=== PATIENT | male | born 1960 | race Caucasian/White ===

== ENCOUNTER → 2018-02-24 15:01 | Outpatient (REF) | payer MEDICAID, SELFPAY ==
[2018-02-24 17:58] LABS: Basophils # 0.1 K/mm3 (0-0.2); Basophils % 0.7 % (0.1-2.0); Eosinophils # 0.1 K/mm3 (0.0-0.4); Eosinophils % 1.6 % (0.1-12.0); Hematocrit 50.4 % (42.0-52.0); Hemoglobin 15.9 g/dL (14.1-18.0); Lymphocytes % 30.8 K/mm3 (10-50); Mean Corpuscular HGB Conc 31.5 g/dL (31.8-35.4); Mean Corpuscular Hemoglobin 29.9 pg (27.0-31.2); Mean Corpuscular Volume 94.8 fl (80-94); Mean Platelet Volume 8.1 fl (7.4-10.4); Monocytes # 0.5 K/mm3 (0.1-1.0); Monocytes % 7.9 % (1.7-9.3); Neutrophils # 3.8 K/mm3 (1.8-7.8); Neutrophils % 58.9 % (37.0-80.0); Platelet Count 292 K/mm3 (142-424); Red Blood Count 5.32 M/mm3 (4.60-6.20); Red Cell Distribution Width 12.7 % (11.5-17.5); White Blood Count 6.4 K/mm3 (4.8-10.8)
[2018-02-24 18:12] LABS: Alanine Aminotransferase 23 U/L (12-78); Albumin/Globulin Ratio 1.2 (1.1-1.8); Alkaline Phosphatase 97 U/L (46-116); Anion Gap 10.1 mEq/L (5-15); Aspartate Amino Transferase 18 U/L (15-37); Bilirubin,Total 0.7 mg/dL (0.2-1.0); Blood Urea Nitrogen 15 mg/dL (7-18); Calcium 8.7 mg/dL (8.5-10.1); Carbon Dioxide 27 mmol/L (21.0-32.0); Chloride 103 mmol/L (98-107); Chol/HDL Ratio 5.8 (1-3.5); Cholesterol 245 mg/dL (140-200); Creatinine,Serum 0.78 mg/dL (0.70-1.30); Estimated Glomerular Filt Rate 103 ml/min (>60); Free T4 (Free Thyroxine) 1.15 ng/dl (0.76-1.46); GFR (African American) 124 ML/MIN (>60); Globulin 3.3 gm/dl (1.3-3.2); Glucose 99 mg/dL (74-106); HDL Cholesterol 42 mg/dL (27-67); LDL Cholesterol 184 mg/dL (0-130); Potassium 4.1 mmoL/L (3.5-5.1); Sodium 136 mmol/L (136-145); Thyroid Stimulating Hormone 1.44 uIU/ml (0.358-3.740); Total Protein,Serum 7.3 gm/dL (6.4-8.2); Triglycerides 97 mg/dL (30-200); VLDL Cholesterol 19 mg/dL (0-40)
[2018-02-24 18:41] LABS: Erythrocyte Sedimentation Rate 7 mm/hr (0-20)
[2018-02-26 12:25] LABS: Vitamin D 25 Hydroxy 29.7 ng/mL (30.0-100.0)
== END ==
LOC: LAB 15:01
PROVIDERS: Visit Provider Emergency Medicine
DX: R53.83 Other fatigue (principal); R42 Dizziness and giddiness
CPT/HCPCS: 80053; 80061; 82652; 84439; 84443; 85025; 85651

== ENCOUNTER → 2018-03-13 11:46 | Outpatient (CLI) | payer MEDICAID, SELFPAY | PROVIDERS: PCP Emergency Medicine; Visit Provider Internal Medicine Cardiovascular Disease | DX: R53.83 Other fatigue (principal) ==

== ENCOUNTER → 2018-03-20 12:01 | Outpatient (CLI) | payer MEDICAID, SELFPAY ==
--- NOTE | 2018-03-20 12:05 | CA_ITS ---
PROCEDURE: 2-D M-mode and color Doppler study INDICATIONS FOR THE TEST: Chest painX COPDX Heart Murmur Tobacco SmokingX Palpitations Fatigue Syncope Edema Hypertension Diabetes Mellitus Rheumatic Fever SOB ADAM Obesity Hyperlipidemia Family History HD Additional History ARRHYTHMIA PATIENT INFORMATION HEIGHT: 67 WEIGHT:140 GENDER: Male B/P:125/62 2-D/M-MODE INTERPRETATION: 2-D MEASUREMENTS OBSERVED VALUES IN CMS Right Ventricular Dimension (RVDd) 2.4 Interventricular Septum (Thickness)(IVsd) .7 Left Ventricular Internal Dimensions(LVIDd) 5.0 Left Ventricular Posterior Wall (Thickness)(LVPWd) .7 Aortic Root 2.6 Aortic Cusp Separation 1.8 Left Atrial Dimensions (LAD) 2.7 2D 1. Left atrium is normal size, left ventricle is normal size, there is no concentric left ventricular hypertrophy, visually estimated ejection 55% with no obvious regional wall motion abnormality. 2. The right atrium and right ventricle are normal size and contractility. 3. The aortic, mitral and tricuspid valvular grossly normal. 4.The pulmonic valve is poorly visualized. 5. There is no significant pericardial effusion noted. DOPPLER INTERROGATION: Doppler interrogation of the aortic, mitral and tricuspid valve is presence of mild mitral and tricuspid regurgitation, tricuspid and jet velocity insufficient for calculation of the right ventricular systolic pressure, diastolic parameters are within normal range. CONCLUSION: 1. Normal left ventricular size, preserved left ventricular systolic function, visually estimated ejection fraction 55% with no obvious regional wall motion abnormality, diastolic parameters are within normal range. 2. Mild mitral and tricuspid regurgitation 3. No significant pericardial effusion noted.
== END ==
PROVIDERS: PCP Emergency Medicine; Visit Provider Internal Medicine Cardiovascular Disease
DX: R07.9 Chest pain, unspecified (principal)
CPT/HCPCS: 93225; 93306

== ENCOUNTER → 2018-04-09 13:56 | Outpatient (POV) | payer MEDICAID, SELFPAY | PROVIDERS: PCP Emergency Medicine | DX: Z00.00 Encounter for general adult medical examination without abnormal findings (principal) ==

== ENCOUNTER → 2018-09-15 17:50 | Outpatient (CLI) | payer MEDICAID, SELFPAY ==
[2018-09-15 18:28] LABS: Basophils % 0.5 % (0.1-2.0); Eosinophils # 0.1 K/mm3 (0.0-0.4); Eosinophils % 1.6 % (0.1-12.0); Hematocrit 44.7 % (42.0-52.0); Hemoglobin 14.7 g/dL (14.1-18.0); Lymphocytes # 1.8 K/mm3 (0.7-4.5); Lymphocytes % 23.9 % (10-50); Mean Corpuscular Hemoglobin 31.4 pg (27.0-31.2); Mean Corpuscular Volume 95.1 fl (80-94); Mean Platelet Volume 8.5 fl (7.4-10.4); Monocytes # 0.5 K/mm3 (0.1-1.0); Monocytes % 7.2 % (1.7-9.3); Neutrophils % 66.8 % (37.0-80.0); Platelet Count 342 K/mm3 (142-424); Red Blood Count 4.69 M/mm3 (4.60-6.20); Red Cell Distribution Width 13.1 % (11.5-17.5); White Blood Count 7.5 K/mm3 (4.8-10.8)
[2018-09-15 19:09] LABS: Alanine Aminotransferase 30 U/L (12-78); Albumin Level 3.9 gm/dL (3.4-5.0); Albumin/Globulin Ratio 1.1 (1.1-1.8); Alkaline Phosphatase 112 U/L (46-116); Anion Gap 15.5 mEq/L (5-15); Aspartate Amino Transferase 19 U/L (15-37); Bilirubin,Total 0.3 mg/dL (0.2-1.0); Blood Urea Nitrogen 14 mg/dL (7-18); Calcium 9.4 mg/dL (8.5-10.1); Carbon Dioxide 27 mmol/L (21.0-32.0); Chloride 103 mmol/L (98-107); Chol/HDL Ratio 6.6 (1-3.5); Cholesterol 257 mg/dL (140-200); Creatinine,Serum 0.87 mg/dL (0.70-1.30); Estimated Glomerular Filt Rate 90 ml/min (>60); Free T4 (Free Thyroxine) 1.28 ng/dl (0.76-1.46); GFR (African American) 109 ML/MIN (>60); Globulin 3.5 gm/dl (1.3-3.2); Glucose 104 mg/dL (74-106); HDL Cholesterol 39 mg/dL (27-67); LDL Cholesterol 204 mg/dL (0-130); Potassium 4.5 mmoL/L (3.5-5.1); Sodium 141 mmol/L (136-145); Thyroid Stimulating Hormone 1.51 uIU/ml (0.358-3.740); Total Protein,Serum 7.4 gm/dL (6.4-8.2); Triglycerides 72 mg/dL (30-200); VLDL Cholesterol 14 mg/dL (0-40)
[2018-09-15 22:40] LABS: Erythrocyte Sedimentation Rate 26 mm/hr (0-20)
== END ==
LOC: LAB 17:51 → LAB.DROPOF 17:56
PROVIDERS: Visit Provider Emergency Medicine
DX: J44.9 Chronic obstructive pulmonary disease, unspecified (principal)
CPT/HCPCS: 80053; 80061; 84439; 84443; 85025; 85651

== ENCOUNTER → 2019-01-06 11:22 | Outpatient (CLI) | payer MEDICAID, SELFPAY ==
--- NOTE | 2019-01-06 11:28 | XR_ITS ---
EXAM: XR lumbar spine min 4V HISTORY: ITS.REASON: back pain ORDERING PHYSICIAN: Gopi Glass MD PATIENT AGE: 58 years COMPARISON: None FINDINGS: Mild degenerative disc disease L4-L5 with 5 mm anterolisthesis of L4 No fracture or dislocation. No lytic or blastic change. IMPRESSION: Degenerative disc disease L4-5 otherwise negative
--- NOTE | 2019-01-06 11:28 | XR_ITS ---
XR pelvis 1-2V HISTORY: Pain ITS.REASON: pain ORDERING PHYSICIAN: Gopi Glass MD PATIENT AGE: 58 years Comparison: None FINDINGS: No fracture or dislocation. There are bilateral os acetabuli. A well-circumscribed cystic area is present in the left femoral neck at 13 mm. IMPRESSION: 1. 13 mm cystic lesion left femoral neck. Recommend follow-up radiograph in 3 months to confirm stability. 2. Otherwise negative
[2019-01-06 16:23] LABS: Amphetamine/Metha Screen,Urine Negative ng/mL (<1000); Barbiturates Screen,Urine Negative ng/mL (<200); Benzodiazepines Screen,Urine Negative ng/mL (<200); Cannabinoid Screen,Urine Negative ng/mL (<50); Cocaine Screen,Urine Negative ng/mL (<300); Methadone Screen,Urine Negative ng/mL (<300); Opiate Screen,Urine Negative ng/mL (<300); Phencyclidine Screen,Urine Negative ng/mL (<25)
== END ==
PROVIDERS: PCP Emergency Medicine; Visit Provider Emergency Medicine
DX: M54.5 Low back pain (principal); Z79.899 Other long term (current) drug therapy
CPT/HCPCS: 72110; 72170; 80305

== ENCOUNTER → 2019-01-16 09:56 | Outpatient (CLI) | payer MEDICAID, SELFPAY ==
--- NOTE | 2019-01-16 09:57 | MR_ITS ---
MR lumbar spine wo con, MR 3-d myelogram/included HISTORY: Low back pain. Left hip and leg pain 6 months. ITS.REASON: back pain ORDERING PHYSICIAN: Gopi Glass MD PATIENT AGE: 58 years Comparison: plain films of the lumbar spine 01/06/2019 TECHNIQUE: Standard multiplanar multiecho sequences are performed without contrast. 3-D MIP and myelographic images are also rendered and reviewed FINDINGS: Vertebral bodies are intact.. No compression fractures Note multilevel minimal Schmorl's nodes at superior and inferior endplate-seen at multiple levels throughout lumbar and lower thoracic spine.Conus ends appropriately at L1 L5/S1 disc space well maintained well-hydrated disc diffuse disc bulge most evident central and slightly to the right. Facet hypertrophy. Features yield mild recess and foraminal encroachment on right more so than L4/5 and degenerative disc space narrowing. Degenerative grade 1 anterolisthesis of L4 on L5. 4.2 mm anterior offset of L5 on S1 along with the prominent diffuse disc bulge plus exuberant facet hypertrophy and ligament flavum hypertrophy combine to yield moderately pronounced central canal stenosis at this level. Axial views and 3-D MR myelogram images nicely demonstrate the moderate facet canal stenosis. Also generous recess & foraminal encroachment bilaterally . L3/4. Mild foraminal disc bulge. Trace facet arthropathy/hypertrophy. Mild foraminal encroachment due to combination of these features. L1/L2. Disc intact. Facet hypertrophy. T12/L1 disc intact.. No significant appearing findings. Only Mild facet prominence to the left 3-D MR myelogram image set nicely demonstrates the moderately pronounced since canal stenosis at L4/5.- Marked tapering and narrowing the spinal canal. ========IMPRESSION L4/5: Prominent central canal stenosis. With a fairly Prominent bilateral recess & foraminal encroachment. This Due to combination of features including: Exuberant facet hypertrophy, ligamentum flavum hypertrophy; Degenerative listhesis L4 on 5; narrow degenerative disc with prominent diffuse disc bulge,.. L5/S1.: Mild disc bulge most evident central. Mild facet hypertrophy. Mild foraminal encroachment L3/4:... Mild to moderate facet hypertrophy. Minimal foraminal disc bulge. Features combine to yield Mild foraminal encroachment.
== END ==
PROVIDERS: PCP Emergency Medicine; Visit Provider Emergency Medicine
DX: M54.5 Low back pain (principal)
CPT/HCPCS: 72148; 76376

== ENCOUNTER → 2019-02-24 10:48 | Outpatient (POV) | payer MEDICAID, SELFPAY ==
[2019-02-24 11:26] VITALS: BP 131/65; PULSE 68; RESP 18; O2SAT 98; BMI 21.2
--- NOTE | 2019-02-24 13:16 | HMH.PMCON ---
Assessment and Plan (1) DDD (degenerative disc disease), lumbar Current visit: Yes Status: Chronic Category: Medical Code(s): M51.36 - Other intervertebral disc degeneration, lumbar region (2) Spinal stenosis, lumbar Current visit: Yes Status: Chronic Category: Medical Code(s): M48.061 - Spinal stenosis, lumbar region without neurogenic claudication (3) Facet arthropathy, lumbar Current visit: Yes Status: Chronic Category: Medical Code(s): M47.816 - Spondylosis without myelopathy or radiculopathy, lumbar region - Assessment and plan all Dx Assessment and Plan for all problems:: Given the patient's symptoms, I think he would benefit from a lumbar epidural steroid injection at L4 and L5. The patient is not on any anticoagulation therapy. He is continuing a home stretching program and anti-inflammatories. We will schedule the patient for the procedure see him back in the office afterwards to reassess his symptoms at that time. He has been instructed to call the office if he has any concerns prior to his next appointment. Dr. Hays has reviewed this note and agrees with this plan of care. This note was dictated using voice recognition software and make contain errors or omissions. HPI - Data of Consult Patient: new to practice Consult date: 02/24/19 Requesting Physician: Nehal Casey APRN Primary Care Provider: Gopi Glass MD - Consult Narrative Reason for consult: Back pain History of present illness: Mr. Nicolas is a 58 year old white male who presents today for referral from Dr. Glass. The patient has complaints of low back pain. He does say that his pain radiates into his bilateral lower extremities. He also complains of burning and tingling to bilateral feet. He has been experiencing this pain for more than a year. Patient reports that he had a fall more than a year ago resulting in a fracture to his ankle. Since the fall, he started to experience severe low back pain. Patient has tried physical therapy for more than 3 months, along with a home stretching program, and anti-inflammatories. The patient's primary care provider did give him oral narcotics, and the patient reports that he was unable to tolerate the medication due to head fog . The patient did agree to taking Tylenol with codeine 1 tab p.o. twice daily as needed. This has given him no relief. He rates his pain a 7 out of 10 today. CC: Nehal Casey APRN [facility] History I have reviewed the patient's past medical history: Yes Medical History: Reports:: Chronic Obstructive Pulmonary Disease (COPD), Gastroesophageal Reflux Disease(GERD) Denies:: Cancer, Diabetes Mellitus Type 1, Diabetes Mellitus Type 2, MRSA *Have you ever received a pneumonia vaccine?: No *Have you received a flu vaccine this season?: No Other Surgeries: Yes: No Previous Surgery Amputation: No Fractures: Yes - *Social History Smoking Status: Current every day smoker Tobacco Type: cigarettes # Packs/Day (cigarettes): 1 Alcohol Intake: never Alcohol Intake Frequency:: other Substance Use Type: denies use *Occupational Status:: other Housing: house Household Members: other *Travel in the last 8 weeks: None Family Hx:: Heart Attack, Diabetes, Cancer Review of Systems - Review of Systems Review of Systems General: No recent weight changes, no fever, no sleep disturbances Respiratory: No cough, no shortness of air, no recurring pulmonary infections Cardiovascular/peripheral vascular: No chest pain, no palpitations, no edema, no shortness of breath Gastrointestinal: No new onset incontinence, normal bowel movements reported Genitourinary: No new onset incontinence Musculoskeletal: Back pain, leg pain Psychiatric: Normal mood/affect Neurological: [Denies weakness in extremities], [denies balance issues] Meds Home Medications Medication Instructions Recorded Confirmed Type omeprazole magnesium 20 mg 20 mg PO DAILY #30 tab 08/27
--- NOTE | 2019-02-24 13:20 | P.CONS_ITS ---
Assessment and Plan (1) DDD (degenerative disc disease), lumbar Current visit: Yes Status: Chronic Category: Medical Code(s): M51.36 - Other intervertebral disc degeneration, lumbar region (2) Spinal stenosis, lumbar Current visit: Yes Status: Chronic Category: Medical Code(s): M48.061 - Spinal stenosis, lumbar region without neurogenic claudication (3) Facet arthropathy, lumbar Current visit: Yes Status: Chronic Category: Medical Code(s): M47.816 - Spondylosis without myelopathy or radiculopathy, lumbar region - Assessment and plan all Dx Assessment and Plan for all problems:: Given the patient's symptoms, I think he would benefit from a lumbar epidural steroid injection at L4 and L5. The patient is not on any anticoagulation therapy. He is continuing a home stretching program and anti-inflammatories. We will schedule the patient for the procedure see him back in the office afterwards to reassess his symptoms at that time. He has been instructed to call the office if he has any concerns prior to his next appointment. Dr. Hays has reviewed this note and agrees with this plan of care. This note was dictated using voice recognition software and make contain errors or omissions. HPI - Data of Consult Patient: new to practice Consult date: 02/24/19 Requesting Physician: Nehal Casey APRN Primary Care Provider: Gopi Glass MD - Consult Narrative Reason for consult: Back pain History of present illness: Mr. Nicolas is a 58 year old white male who presents today for referral from Dr. Glass. The patient has complaints of low back pain. He does say that his pain radiates into his bilateral lower extremities. He also complains of burning and tingling to bilateral feet. He has been experiencing this pain for more than a year. Patient reports that he had a fall more than a year ago resulting in a fracture to his ankle. Since the fall, he started to experience severe low back pain. Patient has tried physical therapy for more than 3 months, along with a home stretching program, and anti-inflammatories. The patient's primary care provider did give him oral narcotics, and the patient reports that he was unable to tolerate the medication due to head fog . The patient did agree to taking Tylenol with codeine 1 tab p.o. twice daily as needed. This has given him no relief. He rates his pain a 7 out of 10 today. CC: Nehal Casey APRN [facility] History I have reviewed the patient's past medical history: Yes Medical History: Reports:: Chronic Obstructive Pulmonary Disease (COPD), Gastroesophageal Reflux Disease(GERD) Denies:: Cancer, Diabetes Mellitus Type 1, Diabetes Mellitus Type 2, MRSA *Have you ever received a pneumonia vaccine?: No *Have you received a flu vaccine this season?: No Other Surgeries: Yes: No Previous Surgery Amputation: No Fractures: Yes - *Social History Smoking Status: Current every day smoker Tobacco Type: cigarettes # Packs/Day (cigarettes): 1 Alcohol Intake: never Alcohol Intake Frequency:: other Substance Use Type: denies use *Occupational Status:: other Housing: house Household Members: other *Travel in the last 8 weeks: None Family Hx:: Heart Attack, Diabetes, Cancer Review of Systems - Review of Systems Review of Systems General: No recent weight changes, no fever, no sleep disturbances Respiratory: No cough, no shortness of air, no recurring pulmonary infections Cardiovascular/peripheral vascular: No chest pain, no palpitations, no edema, no shortness of breath Gastrointestinal: No new onset incontinen
== END ==
PROVIDERS: PCP Emergency Medicine; Visit Provider Clinical Nurse Specialist Family Health
DX: M51.36 Other intervertebral disc degeneration, lumbar region (principal); M48.061 Spinal stenosis, lumbar region without neurogenic claudication; M47.816 Spondylosis without myelopathy or radiculopathy, lumbar region
CPT/HCPCS: 99202

== ENCOUNTER → 2019-04-03 12:00 | Outpatient (CLI) | payer MEDICAID, SELFPAY ==
--- NOTE | 2019-04-03 12:06 | XR_ITS ---
XR hip LT 2-3V w/pelvis HISTORY: Left hip pain ITS.REASON: repeat xray ORDERING PHYSICIAN: Gopi Glass MD PATIENT AGE: 59 years COMPARISON: 01/06/2019 FINDINGS: No fracture or dislocation is evident. Os acetabulum is noted bilaterally. The faint cystic area at the left femoral neck is once again noted unchanged. IMPRESSION: 1. No acute finding. 2. Stable cystic area in the left femoral neck probably benign
== END ==
PROVIDERS: PCP Emergency Medicine; Visit Provider Emergency Medicine
DX: M85.652 Other cyst of bone, left thigh (principal)
CPT/HCPCS: 73502

== ENCOUNTER → 2019-04-07 11:26 | Outpatient (POV) | payer MEDICAID, SELFPAY ==
[2019-04-07 11:41] VITALS: BP 110/62; PULSE 65; RESP 18; O2SAT 98; BMI 20.7
--- NOTE | 2019-04-07 11:45 | HMH.PAINSOAP ---
[facility] Pain Management SOAP Note Subjective:: Patient is a pleasant 59-year-old white male who presents today for follow-up. Patient missed his appointment for his epidural steroid injection on 13 March. He rates his pain a 5 out of 10 it is still interested in moving forward with an injection. Patient is continuing a home stretching program and anti-inflammatories. Patient is not on any anticoagulation therapy. Most of his pain is in his low back and bilateral legs. He has numbness and tingling along with pain down to his toes. ROS General: no recent weight change, no fever, no sleep disturbances Respiratory: no cough, no shortness of air, no recurring pulmonary infections Cardiovascular/Peripheral Vascular: No chest pain, No palpitations, no edema, no shortness of breath. Gastrointestinal: no incontinence, normal bowel movements reported Genitourinary: no incontinence Musculoskeletal: Back pain, leg pain Psychiatric: normal mood/ affect Neurological: [denies weakness in extremities], [denies balance issues] Objective:: Physical Exam General: Alert and oriented x3, no acute distress, pleasant and cooperative, [on room air] Lungs: Resps E/U, Symmetrical chest expansion, Eyes: PERRL Musculoskeletal: Flexion and extension of lumbar spine somewhat guarded secondary to pain, deep tendon reflexes normal, strength in upper and lower extremities [5/5], [abnormal gait noted] Neurological: speech clear, 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 I will follow-up with the patient after his injection reassess his symptoms at that time he is been instructed to call the office if he has any issues prior to his next appointment. Dr. Hays has reviewed this note and agrees with this plan of care. This note was dictated using voice recognition software and may contain errors or omissions Pain Management Hx Components *Have you ever received a pneumonia vaccine?: No *Have you received a flu vaccine this season?: No - *Social History *Occupational Status:: other *Travel in the last 8 weeks: None
== END ==
PROVIDERS: PCP Emergency Medicine; Visit Provider Clinical Nurse Specialist Family Health
DX: M51.16 Intervertebral disc disorders with radiculopathy, lumbar region (principal); M48.00 Spinal stenosis, site unspecified
CPT/HCPCS: 99212

== ENCOUNTER → 2019-07-13 11:19 | Outpatient (POV) | payer MEDICAID, SELFPAY ==
[2019-07-13 12:02] VITALS: BP 124/66; PULSE 72; RESP 18; O2SAT 99; BMI 21.9
--- NOTE | 2019-07-13 12:29 | HMH.PAINSOAP ---
[facility] Pain Management SOAP Note Subjective:: Is a 59-year-old white male who presents today for follow-up. Patient has no showed twice for his L4-L5 epidural steroid injections. Patient and I discussed that if we schedule him for a third and he does not come to this or cancel by calling our office we will be unable to schedule him with anything moving forward. He rates his pain today 6 out of 10 mostly in his low back and down his bilateral legs. Patient is continuing a home stretching program. And is on anti-inflammatories. Patient is not on any anticoagulation therapy. Is trying to stay as active as possible. He has numbness and tingling along with pain down to his toes bilaterally. ROS General: no recent weight change, no fever, no sleep disturbances Respiratory: no cough, no shortness of air, no recurring pulmonary infections Cardiovascular/Peripheral Vascular: No chest pain, No palpitations, no edema, no shortness of breath. Gastrointestinal: no new onset incontinence, normal bowel movements reported Genitourinary: no new onset incontinence Musculoskeletal: Back pain, leg pain Psychiatric: normal mood/ affect Neurological: [denies new onset weakness in extremities], [denies new onset balance issues] Objective:: Physical Exam General: Alert and oriented x3, no acute distress, pleasant and cooperative, [on room air] Lungs: Resps E/U, Symmetrical chest expansion, [CTA bilateral] Eyes: PERRL Musculoskeletal: Flexion and extension of lumbar spine somewhat guarded secondary to pain, deep tendon reflexes normal, strength in upper and lower extremities [5/5], [abnormal gait noted] Neurological: 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 Patient is not on any anticoagulation therapy. I discussed with the patient if he no showed for this appointment we will not be rescheduling him. I will follow-up with him 2 weeks after his injection reassess his symptoms at that time he is been instructed to call the office if he has any issues prior to this. Dr. Hays has reviewed this note and agrees with this plan of care. This note was dictated using voice recognition software and may contain errors or omissions [facility] History I have reviewed the patient's past medical history: Yes Medical History: Reports:: Chronic Obstructive Pulmonary Disease (COPD), Gastroesophageal Reflux Disease(GERD) Denies:: Cancer, Diabetes Mellitus Type 1, Diabetes Mellitus Type 2, MRSA *Have you ever received a pneumonia vaccine?: Yes *Have you received a flu vaccine this season?: Yes Other Surgeries: Yes: No Previous Surgery, Other Amputation: No Fractures: Yes - *Social History Smoking Status: Current every day smoker Tobacco Type: cigarettes # Packs/Day (cigarettes): 1 Alcohol Intake: never Alcohol Intake Frequency:: 3 or more drinks per day Substance Use Type: denies use *Occupational Status:: other Housing: house Household Members: other *Travel in the last 8 weeks: None Family Hx:: Heart Attack, Diabetes, Cancer
== END ==
PROVIDERS: PCP Emergency Medicine; Visit Provider Clinical Nurse Specialist Family Health
DX: M51.16 Intervertebral disc disorders with radiculopathy, lumbar region (principal); M48.00 Spinal stenosis, site unspecified
CPT/HCPCS: 99212

== ENCOUNTER → 2019-08-12 10:12 | Outpatient (CLI) | payer MEDICAID, SELFPAY ==
--- NOTE | 2019-08-12 10:17 | XR_ITS ---
PROCEDURE: XR FINGER LT MIN 2V CLINICAL INDICATION: left finger fracture Follow-up fracture COMPARISON: XR FINGER LT MIN 2V from 06/27/2019 FINDINGS: Nondisplaced fracture once again noted involving the distal phalanx the 2nd finger. Fracture line is still visible and not significantly changed The joint spaces are well-preserved. No significant degenerative/arthritic changes. No erosive changes evident. Other findings: IMPRESSION: No change nondisplaced fracture distal phalanx 2nd digit Dictated by: Abdirizak Tripp MD 08/12/2019 11:51 Electronically signed by Abdirizak Tripp MD in [place] 08/12/2019 11:51
== END ==
PROVIDERS: PCP Emergency Medicine; Visit Provider Orthopaedic Surgery
DX: S62.601B Fracture of unspecified phalanx of left index finger, initial encounter for open fracture (principal)
CPT/HCPCS: 73140

== ENCOUNTER → 2019-08-31 14:25 | Outpatient (POV) | payer MEDICAID, SELFPAY ==
[2019-08-31 14:37] VITALS: BP 131/72; PULSE 67; RESP 18; O2SAT 98; BMI 21.9
--- NOTE | 2019-08-31 14:41 | P.CONS_ITS ---
[facility] Pain Management SOAP Note Subjective:: Patient is a pleasant 59-year-old white male who presents today for follow-up after his first L4-L5 lumbar epidural steroid injection. Patient wanted is doing extremely well except for his left side. He still having radiating pain down his left leg. He rates his pain a 4 out of 10 today. Patient has had about 80% relief of his symptomology. We discussed trying to get him even more improvement with a left-sided transforaminal epidural injection. He is interested in pursuing this. Patient's not on any anticoagulation therapy. ROS General: no recent weight change, no fever, no sleep disturbances Respiratory: no cough, no shortness of air, no recurring pulmonary infections Cardiovascular/Peripheral Vascular: No chest pain, No palpitations, no edema, no shortness of breath. Gastrointestinal: no new onset incontinence, normal bowel movements reported Genitourinary: no new onset incontinence Musculoskeletal: Back pain, left leg pain Psychiatric: normal mood/ affect Neurological: [denies new onset weakness in extremities], [denies new onset balance issues] Objective:: Physical Exam General: Alert and oriented x3, no acute distress, pleasant and cooperative, [on room air] Lungs: Resps E/U, Symmetrical chest expansion, Eyes: PERRL Musculoskeletal: Flexion and extension of lumbar spine somewhat guarded secondary to pain, deep tendon reflexes normal, strength in upper and lower extremities [5/5], [abnormal gait noted] straight leg raise test on the left side positive at 30 degrees Neurological: speech clear, 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 Given the efficacy of his regular epidural I do believe that this would benefit the left-sided radicular pattern. I will follow-up with him after this reassess his symptoms at that time he is getting continue his home stretching program. Dr. Hays has reviewed this note and agrees with this plan of care. This note was dictated using voice recognition software and may contain errors or omissions [facility] History I have reviewed the patient's past medical history: Yes Medical History: Reports:: Chronic Obstructive Pulmonary Disease (COPD), Gastroesophageal Reflux Disease(GERD) Denies:: Cancer, Diabetes Mellitus Type 1, Diabetes Mellitus Type 2, MRSA *Have you ever received a pneumonia vaccine?: Yes *Have you received a flu vaccine this season?: Yes Other Surgeries: Yes: No Previous Surgery, Other Amputation: No Fractures: Yes - *Social History Smoking Status: Current every day smoker Tobacco Type: cigarettes # Packs/Day (cigarettes): 1 Alcohol Intake: never Alcohol Intake Frequency:: 3 or more drinks per day Substance Use Type: denies use *Occupational Status:: other Housing: house Household Members: other *Travel in the last 8 weeks: None Family Hx:: Heart Attack, Diabetes, Cancer
== END ==
PROVIDERS: PCP Emergency Medicine; Visit Provider Clinical Nurse Specialist Family Health
DX: M51.16 Intervertebral disc disorders with radiculopathy, lumbar region (principal)
CPT/HCPCS: 99212

== ENCOUNTER → 2020-05-10 15:03 | Outpatient (CLI) | payer MEDICAID, SELFPAY ==
--- NOTE | 2020-05-10 15:06 | XR_ITS ---
PROCEDURE: XR CALCANEUS LT MIN 2V CLINICAL INDICATION: fracture Follow-up fracture COMPARISON: CT FOOTLTWO CT foot LT wo con from 03/19/2018 FINDINGS: Previously there was a fracture along the medial and inferior aspect of the clavicle posteriorly. Lucency is present in this region consistent with an old injury. No acute fracture or dislocation evident. The joint spaces are well-preserved. No significant degenerative/arthritic changes. No erosive changes evident. Other findings:None. IMPRESSION: No acute finding. Lucency of the posterior calcaneus toward the medial aspect consistent with an old fracture Dictated by: Abdirizak Tripp MD 05/10/2020 17:38 Abdirizak Tripp MD in [place] 05/10/2020 17:38
--- NOTE | 2020-05-10 15:06 | XR_ITS ---
PROCEDURE: XR FOOT WT BEARING LT 3V CLINICAL INDICATION: fracture Follow-up fracture COMPARISON: CR [id number] XR foot LT min 3V from 03/19/2018 FINDINGS: Osteoarthritic changes are present at the 1st metatarsophalangeal joint. There is an old fracture involving the calcaneus medially and posteriorly. No acute fracture or dislocation. Other findings:None. 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
--- NOTE | 2020-05-10 15:06 | XR_ITS ---
PROCEDURE: XR FOOT WT BEARING RT 3V CLINICAL INDICATION: foot pain COMPARISON: CR [id number] XR foot LT min 3V from 03/19/2018 FINDINGS: No fracture or dislocation. There is some heterogeneous density along the medial aspect of the navicular nonspecific. There is also lucency of the distal phalanx of the great toe suggesting a cystic lesion within the distal phalanx measuring 11 mm. There are osteoarthritic changes at the 1st MTP joint. Other findings:None. IMPRESSION: 1. 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 2. Possible cystic lesion of the distal phalanx of the great toe. Consider follow-up to confirm stability. 3. Heterogeneous density of the medial aspect of the navicular etiology indeterminate. CT or MRI may provide further evaluation. Dictated by: Abdirizak Tripp MD 05/10/2020 17:43 Abdirizak Tripp MD in [place] 05/10/2020 17:43
== END ==
PROVIDERS: PCP Emergency Medicine; Visit Provider Podiatrist
DX: M79.672 Pain in left foot (principal)
CPT/HCPCS: 73630; 73650

== ENCOUNTER → 2020-12-07 15:07 | Outpatient (CLI) | payer MEDICAID, SELFPAY ==
[2020-12-07 15:44] LABS: Alanine Aminotransferase 21 U/L (12-78); Albumin Level 4.3 g/dl (3.5-5.0); Albumin/Globulin Ratio 1.7 (1.1-1.8); Alkaline Phosphatase 102 U/L (38-126); Aspartate Amino Transferase 26 U/L (17-59); Bilirubin,Total 0.4 mg/dl (0.2-1.3); Blood Urea Nitrogen 16 mg/dl (9-20); Calcium 9.5 mg/dl (8.4-10.2); Carbon Dioxide 26 mmol/L (22.0-30.0); Chloride 104 mmol/L (98-107); Chol/HDL Ratio 5.4 (1-3.5); Cholesterol 260 mg/dl (140-200); Estimated Glomerular Filt Rate 99 ml/min (>60); GFR (African American) 119 ML/MIN (>60); Globulin 2.6 g/dL (1.3-3.2); Glucose 110 mg/dl (74-100); HDL Cholesterol 48 mg/dl (40-60); Sodium 138 mmol/L (136-145); Total Protein,Serum 6.9 g/dl (6.3-8.2); Triglycerides 89 mg/dl (30-150); VLDL Cholesterol 18 mg/dL (0-40)
[2020-12-07 15:55] LABS: Direct LDL Cholesterol 185.63 mg/dL (100-129)
[2020-12-07 16:02] LABS: T4 (Thyroxine) 9.4 ug/dl (5.53-11.0)
[2020-12-07 16:15] LABS: Prostate Specific Ag Screen 2.1 ng/ml (0.0-4.0); Thyroid Stimulating Hormone 2.17 uIU/mL (0.465-4.68)
[2020-12-07 17:42] LABS: Basophils # 0.1 K/mm3 (0-0.2); Basophils % 0.6 % (0.1-2.0); Eosinophils # 0.1 K/mm3 (0.0-0.4); Eosinophils % 1.4 % (0.1-12.0); Hematocrit 47.5 % (42.0-52.0); Hemoglobin 15.1 g/dL (14.1-18.0); Lymphocytes # 2.1 K/mm3 (0.7-4.5); Lymphocytes % 26.2 % (10-50); Mean Corpuscular HGB Conc 31.9 g/dL (31.8-35.4); Mean Corpuscular Hemoglobin 30.5 pg (27.0-31.2); Mean Corpuscular Volume 95.7 fl (80-94); Mean Platelet Volume 8.6 fl (7.4-10.4); Monocytes # 0.5 K/mm3 (0.1-1.0); Monocytes % 6.5 % (1.7-9.3); Neutrophils # 5.3 K/mm3 (1.8-7.8); Neutrophils % 65.1 % (37.0-80.0); Platelet Count 321 K/mm3 (142-424); Red Blood Count 4.96 M/mm3 (4.60-6.20); Red Cell Distribution Width 12.9 % (11.5-17.5); White Blood Count 8.1 K/mm3 (4.8-10.8)
== END ==
PROVIDERS: Visit Provider Nurse Practitioner Family
DX: E78.5 Hyperlipidemia, unspecified (principal); Z12.5 Encounter for screening for malignant neoplasm of prostate; Z79.899 Other long term (current) drug therapy
CPT/HCPCS: 80053; 80061; 84436; 84443; 85025; G0103

== ENCOUNTER → 2021-01-16 13:53 | Outpatient (CLI) | payer MEDICAID, SELFPAY ==
--- NOTE | 2021-01-16 13:57 | XR_ITS ---
PROCEDURE: XR CHEST 2V CLINICAL HISTORY: shortness of breath COMPARISON: No exams were available for comparison FINDINGS: The cardiomediastinal silhouette and pulmonary vascularity are within normal limits. The There is minimal upper thoracic curvature convex left IMPRESSION: No acute findings. Dictated by: Abdirizak Tripp MD 01/16/2021 14:14 Abdirizak Tripp MD in [place] 01/16/2021 14:14
== END ==
PROVIDERS: PCP Emergency Medicine; Visit Provider Emergency Medicine
DX: R06.02 Shortness of breath (principal)
CPT/HCPCS: 71046

== ENCOUNTER → 2021-06-19 09:28 | Outpatient (CLI) | payer MEDICAID, SELFPAY | PROVIDERS: Visit Provider Ophthalmology | DX: Z01.812 Encounter for preprocedural laboratory examination (principal); Z11.52 Encounter for screening for COVID-19 | CPT/HCPCS: C9803; U0003; U0005 ==

== ENCOUNTER 2021-06-20 08:39 | Day surgery (SDC) | payer MEDICAID, SELFPAY ==
[2021-06-19 10:33] VITALS: BMI 22.2
[2021-06-20 08:56] VITALS: BP 128/50; PULSE 60; RESP 16; TEMP 36.6; O2SAT 98
[2021-06-20 10:21] VITALS: BP 155/74; PULSE 49; RESP 16; O2SAT 100
[2021-06-20 10:26] VITALS: BP 136/65; PULSE 49; RESP 16; O2SAT 100
[2021-06-20 10:31] VITALS: BP 133/65; PULSE 46; RESP 16; O2SAT 100
[2021-06-20 10:35] VITALS: BP 137/65; PULSE 46; RESP 16; O2SAT 100
[2021-06-20 10:39] VITALS: BP 125/74; PULSE 69; RESP 18; TEMP 36.5; O2SAT 97
== END 2021-06-20 10:50 | disposition home or self-care (01) ==
LOC: OR 08:41
PROVIDERS: PCP Emergency Medicine; Visit Provider Ophthalmology
PROC: (CPT 66984; principal; 2021-06-20 11:00)
DX: H25.813 Combined forms of age-related cataract, bilateral (principal); H53.149 Visual discomfort, unspecified; H52.00 Hypermetropia, unspecified eye; J44.9 Chronic obstructive pulmonary disease, unspecified; Z72.0 Tobacco use; K21.9 Gastro-esophageal reflux disease without esophagitis; E78.5 Hyperlipidemia, unspecified; Z88.0 Allergy status to penicillin; Z79.899 Other long term (current) drug therapy
CPT/HCPCS: 66984; V2632

== ENCOUNTER → 2021-07-03 11:49 | Outpatient (CLI) | payer MEDICAID, SELFPAY | PROVIDERS: Visit Provider Ophthalmology | DX: Z01.812 Encounter for preprocedural laboratory examination (principal); Z11.52 Encounter for screening for COVID-19 | CPT/HCPCS: C9803; U0003; U0005 ==

== ENCOUNTER 2021-07-04 08:52 | Day surgery (SDC) | payer MEDICAID, SELFPAY ==
[2021-06-30 11:31] VITALS: BMI 21.9
[2021-07-04 09:37] VITALS: BP 155/78; PULSE 55; RESP 16; TEMP 36.6; O2SAT 98
[2021-07-04 11:01] VITALS: BP 153/68; PULSE 47; RESP 16; O2SAT 100
[2021-07-04 11:06] VITALS: BP 129/66; PULSE 49; RESP 16; O2SAT 100
[2021-07-04 11:11] VITALS: BP 142/67; PULSE 46; RESP 16; O2SAT 100
[2021-07-04 11:16] VITALS: BP 139/67; PULSE 46; RESP 16; O2SAT 100
[2021-07-04 11:20] VITALS: BP 117/73; PULSE 58; RESP 16; TEMP 36.1; O2SAT 99
== END 2021-07-04 11:30 | disposition home or self-care (01) ==
LOC: OR 08:53
PROVIDERS: PCP Emergency Medicine; Visit Provider Ophthalmology
PROC: (CPT 66984; principal; 2021-07-04 11:00)
DX: H25.813 Combined forms of age-related cataract, bilateral (principal); H53.149 Visual discomfort, unspecified; H52.00 Hypermetropia, unspecified eye; J44.9 Chronic obstructive pulmonary disease, unspecified; K21.9 Gastro-esophageal reflux disease without esophagitis; E78.5 Hyperlipidemia, unspecified; Z88.0 Allergy status to penicillin; Z79.899 Other long term (current) drug therapy
CPT/HCPCS: 66984; V2632

== ENCOUNTER → 2022-04-19 13:39 | Outpatient (CLI) | payer MEDICAID, SELFPAY ==
--- NOTE | 2022-04-19 13:42 | CT_ITS ---
FINAL REPORT CLINICAL HISTORY: lung cancer screening FINDINGS: Low-Dose Chest CT Axial images were obtained from the lung apex to the mid abdomen by computed tomography. Low-dose protocol was utilized. CTDI vol (mGy): 2.90 DLP (mGy-cm): 107.59 There is no axillary adenopathy. There is no hilar or mediastinal adenopathy. The heart is proper size. There is no pericardial or pleural effusion. Limited images of the upper abdomen are unremarkable. Lung window images demonstrate no suspicious infiltrate or nodule. There are changes of emphysema and mild granulomatous disease. There is no consolidation. IMPRESSION: Lung RADS category 1. Recommend 12 month follow-up low-dose chest CT. Reviewed, Interpreted and Dictated by Analia Verduzco MD Transcribed by Patrica Katz Authenticated and [facility]
== END ==
PROVIDERS: PCP Emergency Medicine; Visit Provider Emergency Medicine
DX: Z87.891 Personal history of nicotine dependence (principal); Z12.2 Encounter for screening for malignant neoplasm of respiratory organs
CPT/HCPCS: 71271

== ENCOUNTER → 2022-07-11 14:20 | Outpatient (CLI) | payer MEDICAID, SELFPAY ==
[2022-07-11 17:55] LABS: Basophils % 0.7 % (0.1-2.0); Eosinophils # 0.1 K/mm3 (0.0-0.4); Eosinophils % 0.7 % (0.1-12.0); Hematocrit 45.5 % (42.0-52.0); Hemoglobin 14.5 g/dL (14.1-18.0); Lymphocytes # 2.3 K/mm3 (0.7-4.5); Lymphocytes % 34.2 % (10-50); Mean Corpuscular HGB Conc 31.9 g/dL (31.8-35.4); Mean Corpuscular Hemoglobin 31.3 pg (27.0-31.2); Mean Corpuscular Volume 98.1 fl (80-94); Mean Platelet Volume 8.9 fl (7.4-10.4); Monocytes # 0.4 K/mm3 (0.1-1.0); Monocytes % 6.3 % (1.7-9.3); Neutrophils # 3.8 K/mm3 (1.8-7.8); Neutrophils % 58.1 % (37.0-80.0); Platelet Count 356 K/mm3 (142-424); Red Blood Count 4.64 M/mm3 (4.60-6.20); Red Cell Distribution Width 13.5 % (11.5-17.5); White Blood Count 6.6 K/mm3 (4.8-10.8)
[2022-07-11 18:23] LABS: Erythrocyte Sedimentation Rate 15 mm/hr (0-20)
[2022-07-11 19:11] LABS: Alanine Aminotransferase 21 U/L (12-78); Albumin Level 4.4 g/dl (3.5-5.0); Albumin/Globulin Ratio 1.7 (1.1-1.8); Alkaline Phosphatase 124 U/L (38-126); Anion Gap 15.6 mEq/L (5-15); Aspartate Amino Transferase 26 U/L (17-59); Bilirubin,Total 0.4 mg/dl (0.2-1.3); Blood Urea Nitrogen 18 mg/dl (9-20); Calcium 9.7 mg/dl (8.4-10.2); Carbon Dioxide 27 mmol/L (22.0-30.0); Chloride 100 mmol/L (98-107); Chol/HDL Ratio 6.3 (1-3.5); Cholesterol 250 mg/dl (140-200); Estimated Glomerular Filt Rate 98 ml/min (>60); GFR (African American) 119 ML/MIN (>60); Globulin 2.6 g/dL (1.3-3.2); Glucose 100 mg/dl (74-100); HDL Cholesterol 40 mg/dl (40-60); Potassium 4.6 mmoL/L (3.5-5.1); Sodium 138 mmol/L (136-145); Triglycerides 107 mg/dl (30-150); VLDL Cholesterol 21 mg/dL (0-40)
[2022-07-11 19:28] LABS: Direct LDL Cholesterol 166.08 mg/dL (100-129)
[2022-07-11 19:45] LABS: Prostate Specific Ag Screen 3.4 ng/ml (0.0-4.0); Thyroid Stimulating Hormone 1.08 uIU/mL (0.465-4.68)
== END ==
PROVIDERS: PCP Emergency Medicine; Visit Provider Emergency Medicine
DX: G95.19 Other vascular myelopathies (principal); R53.83 Other fatigue; E55.9 Vitamin D deficiency, unspecified
CPT/HCPCS: 80053; 80061; 82306; 84439; 84443; 85025; 85651; G0103

== ENCOUNTER → 2022-08-15 13:22 | Outpatient (CLI) | payer MEDICAID, SELFPAY ==
--- NOTE | 2022-08-15 13:29 | US_ITS ---
FINAL REPORT CLINICAL HISTORY: back pain with neurogenic claudication FINDINGS: ANKLE/BRACHIAL INDICES FINDINGS: Pressure indices are as follows: RIGHT LOWER EXTREMITY: Ankle brachial pressure index: 1.1 Comments: Normal LEFT LOWER EXTREMITY: Ankle brachial pressure index: 1.2 Comments: Normal IMPRESSION: No evidence of significant obstructive peripheral vascular disease of the lower extremities. Reviewed, Interpreted and Dictated by Seng Castillo III, MD Transcribed by Fco Simmons Authenticated and . [facility]
== END ==
PROVIDERS: PCP Emergency Medicine; Visit Provider Emergency Medicine
DX: G95.19 Other vascular myelopathies (principal); M48.061 Spinal stenosis, lumbar region without neurogenic claudication
CPT/HCPCS: 93923

== ENCOUNTER 2022-11-30 13:31 | Outpatient (RCR) | payer MEDICAID, SELFPAY ==
--- NOTE | 2022-11-30 16:17 | HMH.PTOPEV ---
PT Outpatient Evaluation Rehab PT Outpatient Evaluation Start: 11/30/22 13:55 Freq: Status: Active Protocol: Document 11/30/22 13:55 CHAR (Rec: 11/30/22 16:17 CHAR [id number]) E-signed By Darlyn Larios, PT Outpatient Therapy Subjective History Subjective History Pt presents to the PT clinic with reports of low back pain that began about 3 years ago when he fell out of a tree. Pt reports that he had x-rays performed that revealed his spine was squished but were negative for fracture. Pt states that the back pain he feels comes off and on. Pt reports that he notices his back pain when he is up on his feet a lot or running errands . Pt reports he is often slow to get up due to his back pain . Pt reports that he received a steriod injection into his back in 2019 which really helped. Pt denies reports of n /t throughout BLE's but states that they often burn from the knees down. Pt reports he often feels better sitting compared to standing. Pt reports that he is often limited to ~1hour of standing before he needs to sit down and take a break. Chief Complaint Pain,Weakness Symptom Type Throb,Sharp,Burning Symptoms Relieved By Rest/Positioning,OTC Meds, Prescription Meds Symptoms Aggravated By Standing,Physical Activity, Twisting,Walking,Lifting Prior Functional Limitations None Current Functional Limitations Reaching,Sleeping,Standing, Squatting,Walking,Stairs, Balance,Bending/Stooping Symptom Description Intermittent,Activity Dependent Level of pain today (0-10) 0 Pain scale - at its best (0-10) 0 Pain scale - at its worst (0-10) 9 Lumbopelvic Eval Posture Thoracic Spine Posture Standing Position Increased Kyphosis Lumbar Spine Posture Standing Position Neutral Assistive device Assistive Devices None / NA Gait Observation General Gait Pattern Observation Antalgic Gait,Narrow Based
== END 2022-11-30 13:35 | disposition home or self-care (01) ==
LOC: PT 13:31
PROVIDERS: PCP Emergency Medicine; Visit Provider Emergency Medicine
DX: M51.36 Other intervertebral disc degeneration, lumbar region (principal); M48.061 Spinal stenosis, lumbar region without neurogenic claudication; M47.816 Spondylosis without myelopathy or radiculopathy, lumbar region; G95.19 Other vascular myelopathies
CPT/HCPCS: 97163

== ENCOUNTER → 2023-06-07 12:15 | Outpatient (CLI) | payer MEDICAID, SELFPAY ==
--- NOTE | 2023-06-07 12:19 | CA_ITS ---
APPROVED REPORT EXAM: Comprehensive 2D, Doppler, and color-flow Echocardiogram Quality Control Assistant: Shelby Wooten RDCS Ht: 5 ft 7 in Wt: 151lbs BSA: 1.79 BP: 118/70 mmHg Indications: SOA,CAD,COPD,HLP 2D Dimensions LVOT 1.70 cm (M/F) 1.5-2.5 M-Mode Dimensions RVDd 1.65 cm (0.9-2.6) LA Diam 2.99 cm (1.9-4.0) LVDd 5.28 cm (3.5-5.7) Ao Diam 2.42 cm (2.0-3.7) LVDs 3.46 cm (3.5-5.7) IVSd 0.54 cm (0.6-1.1) PWd 0.67 cm (0.6-1.1) EF (Teich) 63.10% FS 34.50% EDV (Teich) 134.20 mL ESV (Teich) 49.50 mL LV Diastology E Decel Time 193.00 (160-240 msec) E/A Ratio 1.3 MED E' 12.10 (< 7 cm/sec) E'/MED E' Ratio 6.42 (>14) LAT E' 14.80 (<10 cm/sec) E/LAT E' Ratio 5.25 (>14) Mitral Valve MV E Max Addison. 78.00 (40-130 cm/s) MV A Velocity 58.00 (40-130 cm/s) E/A Ratio 1.34 MV Decel. Time 193.00 (160-240 ms) MV PHT 57.00 ms Left Ventricle The left ventricle is normal size. The left ventricular systolic function is normal. The left ventricular ejection fraction is within the normal range. There is normal left ventricular wall thickness. There is normal LV segmental wall motion. The left ventricular diastolic function is normal. LVEF is 60%. Right Ventricle The right ventricle is normal size. The right ventricular systolic function is normal. Atria The left atrium size is normal. The right atrium size is normal. There is no Doppler evidence of interatrial shunt. Aortic Valve The aortic valve is normal in structure. There is no aortic valvular stenosis. No aortic regurgitation is present. Mitral Valve The mitral valve is normal in structure. No evidence of mitral valve stenosis. Trace mitral regurgitation. Tricuspid Valve The tricuspid valve leaflets are thin and pliable. Trace tricuspid regurgitation. RVSP is normal. Pulmonic Valve The pulmonary valve is normal in structure. Trace pulmonic regurgitation. Great Vessels The aortic root is normal in size. The ascending aorta is normal in size. IVC is normal in size and collapses >50% with inspiration. Pericardium There is no pericardial effusion. Other Information Study Quality: Adequate Conclusion Normal biventricular systolic function. No significant valvular stenosis or regurgitation. Electronically signed by : Rossana Keane MD 06/09/2023 16:25:40
[2023-06-07 14:55] LABS: Alanine Aminotransferase 31 U/L (12-78); Albumin Level 4.2 g/dl (3.5-5.0); Alkaline Phosphatase 97 U/L (38-126); Aspartate Amino Transferase 38 U/L (17-59); Bilirubin,Direct 0.1 mg/dl (0.0-0.4); Bilirubin,Indirect 0.1 mg/dL (0.0-0.9); Bilirubin,Total 0.2 mg/dl (0.2-1.3); Bilirubin,Unconjugated 0.1 mg/dL (0.0-1.1); Chol/HDL Ratio 6.8 (1-3.5); Cholesterol 243 mg/dl (140-200); HDL Cholesterol 36 mg/dl (40-60); Total Protein,Serum 6.8 g/dl (6.3-8.2); Triglycerides 100 mg/dl (30-150); VLDL Cholesterol 20 mg/dL (0-40)
[2023-06-07 15:05] LABS: Direct LDL Cholesterol 164.96 mg/dL (100-129)
== END ==
PROVIDERS: Nurse Practitioner Family; PCP Emergency Medicine; Visit Provider Emergency Medicine
DX: R06.02 Shortness of breath (principal); E78.5 Hyperlipidemia, unspecified
CPT/HCPCS: 36415; 80061; 80076; 93306

== ENCOUNTER → 2023-07-11 12:57 | Outpatient (CLI) | payer MEDICAID, SELFPAY ==
--- NOTE | 2023-07-11 13:17 | CT_ITS ---
FINAL REPORT CLINICAL HISTORY: BLE PAD COMPARISON: None FINDINGS: Post contrast axial imaging of the aorta and bilateral lower extremity was obtained and reviewed. This study was performed with techniques to keep radiation doses as low as reasonably achievable (ALARA). Individualized dose reduction techniques using automated exposure control or adjustment of mA and/or kV according to the patient's size were employed. There is no evidence of aortic aneurysm. There is no evidence of aortic stenosis. 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 The superior mesenteric artery is intact. The inferior mesenteric artery appears occluded. There is no evidence of renal artery stenosis. The iliac arteries are unremarkable, without stenosis. The internal iliac arteries are patent. Right: The right common femoral artery, deep femoral artery and superficial femoral artery are all patent, without stenosis. There is no stenosis of the popliteal artery. The distal popliteal artery and distal arteries extending into the calf and foot are not well contrast-enhanced and are not adequately visualized. Left: The left common femoral artery, deep femoral artery and superficial femoral artery are all patent, without stenosis. There is no stenosis of the popliteal artery. The distal popliteal artery and distal arteries extending into the calf and foot are not well contrast-enhanced and are not adequately visualized. Review of the remaining abdomen and pelvis demonstrates no evidence of mass or adenopathy. There is a moderately enlarged prostate gland which measures 5.9 cm in transverse diameter. There is no fluid collection or acute inflammatory process. 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 Poor contrast enhancement in the popliteal arteries bilaterally extending distally into the feet, and these vessels cannot be adequately evaluated on this examination. Reviewed, Interpreted and Dictated by Alvin Yu MD Transcribed by Eleanor Chang Authenticated and [facility]
[2023-07-11 13:30] LABS: Blood Urea Nitrogen 18 mg/dl (9-20); Estimated Glomerular Filt Rate 98 ml/min (>60); GFR (African American) 118 ML/MIN (>60)
== END ==
PROVIDERS: PCP Physician Assistant; Visit Provider Nurse Practitioner Family
DX: I73.9 Peripheral vascular disease, unspecified (principal)
CPT/HCPCS: 36415; 75635; 82565; 84520; Q9967

== ENCOUNTER 2023-08-13 13:48 | Emergency (ER) | payer MEDICAID, SELFPAY ==
[2023-08-13 14:50] VITALS: BP 114/53; PULSE 66; RESP 18; TEMP 36.4; O2SAT 97; BMI 24.4
--- NOTE | 2023-08-13 14:58 | EXP.UTC ---
Discharge Plan Disposition Patient Disposition: Home, Self-Care Condition: Good Prescriptions Prescriptions: New azithromycin 250 mg tablet See Rx Instructions .ROUTE .COMPLEX Qty: 6 0RF Rx Instructions: For 250 mg dose pack: take 500 mg today (day 1), then 250 mg for 4 days (days 2-5). Hold cholesterol medication while taking this medication. methylprednisolone [Medrol (Ceferino)] 4 mg tablets,dose pack See Rx Instructions .ROUTE .COMPLEX 6 Days Qty: 21 0RF Rx Instructions: 4 mg orally ;Medrol dose taper ceferino No Action aspirin [Adult Low Dose Aspirin] 81 mg tablet,delayed release (DR/EC) 81 mg PO DAILY Qty: 90 1RF isosorbide mononitrate 30 mg tablet extended release 24 hr 30 mg PO DAILY Qty: 90 1RF Proventil HFA 90 mcg/actuation HFA aerosol inhaler 2 puff INHALATION TID PRN (Reason: shortness of breath or wheezing) Qty: 6.7 5RF gabapentin 100 mg capsule 100 mg PO TID Qty: 90 2RF acetaminophen-codeine 300-30 mg tablet 1 tab PO TID PRN (Reason: pain) Qty: 90 2RF atorvastatin 10 mg tablet See Rx Instructions .ROUTE .COMPLEX Qty: 30 3RF Dose Instruction: TAKE ONE TABLET BY MOUTH AT BEDTIME Rx Instructions: TAKE ONE TABLET BY MOUTH AT BEDTIME esomeprazole magnesium 20 mg capsule,delayed release(DR/EC) See Rx Instructions .ROUTE .COMPLEX Qty: 90 3RF Dose Instruction: TAKE ONE CAPSULE BY MOUTH ONCE A DAY Rx Instructions: TAKE ONE CAPSULE BY MOUTH ONCE A DAY budesonide-formoterol 80-4.5 mcg/actuation HFA aerosol inhaler See Rx Instructions .ROUTE .COMPLEX Qty: 10.2 0RF Dose Instruction: INHALE 2 PUFFS BY MOUTH ONCE A DAY Rx Instructions: INHALE 2 PUFFS BY MOUTH ONCE A DAY Referrals Follow up/Referrals: Provider,Referral, MD [Primary Care Provider] - See instructions Clinical Impressions Clinical Impression: Acute upper respiratory infection Instructions Patient Instructions: DI for Chronic Obstructive Pulmonary Disease Discharge ED Provider: Frances Shine [facility] HPI General Stated complaint: coughing up blood,SOA Time Seen by Provider: 08/13/23 14:58 History of Present Illness Provider Complaint: Pt relates that he was working out in the [place] and got short of breathe and did his inhaler. He reports coughing up yellow/orange colored mucous. He reports having a lot of sinus drainage with the same color. He states that he has a long history of COPD. Related Data Previous Rx's Medication Instructions Recorded albuterol sulfate 90 mcg/actuation 2 puff inhalation TID PRN 04/11/22 aerosol inhaler (Proventil HFA) shortness of breath or wheezing #6.7 grams atorvastatin 10 mg tablet See Rx Instructions .Route 10/10/22 .COMPLEX #30 tabs esomeprazole magnesium 20 mg See Rx Instructions .Route 10/10/22 capsule,delayed release .COMPLEX #90 caps budesonide-formoterol HFA 80 See Rx Instructions .Route 02/04/23 mcg-4.5 mcg/actuation aerosol .COMPLEX #10.2 grams inhaler acetaminophen 300 mg-codeine 30 mg 1 tab PO TID PRN pain #90 tabs 05/07/23 tablet gabapentin 100 mg capsule 100 mg PO TID #90 caps 05/07/23 aspirin 81 mg tablet,delayed 81 mg PO DAILY #90 tabs 05/14/23 release (Adult Low Dose Aspirin) isosorbide mononitrate 30 mg 30 mg PO DAILY #90 tabs 07/30/23 tablet,extended release 24 hr azithromycin 250 mg tablet See Rx Instructions PO .COMPLEX #6 08/13/23 tabs methylprednisolone 4 mg tablets in See Rx Instructions .Route 08/13/23 a dose pack (Medrol (Ceferino)) .COMPLEX 6 days #21 tabs Allergies Allergy/AdvReac Type Severity Reaction Status Date / Time Penicillins [PENICILLINS] Allergy Unknown Verified 08/13/23 15:05 [facility] Disclaimer: The information contained in this section may have been updated after the patient was seen, as this information can be updated by other users. Medical History (Updated 08/13/23 @ 15:13 by Meaghan Cortes APRN) Abnormal computed tomography of lower e
[2023-08-13 15:23] VITALS: BP 114/53; PULSE 66; RESP 18; TEMP 36.4; O2SAT 97
== END 2023-08-13 15:23 | disposition home or self-care (01) ==
PROVIDERS: Emergency Provider Nurse Practitioner
DX: R06.02 Shortness of breath (principal); J06.9 Acute upper respiratory infection, unspecified; R05.9 Cough, unspecified; R09.81 Nasal congestion; J44.9 Chronic obstructive pulmonary disease, unspecified; F17.210 Nicotine dependence, cigarettes, uncomplicated; I11.9 Hypertensive heart disease without heart failure; I25.119 Atherosclerotic heart disease of native coronary artery with unspecified angina pectoris; I73.9 Peripheral vascular disease, unspecified; E78.5 Hyperlipidemia, unspecified
CPT/HCPCS: 99204; 99212; G0463

== ENCOUNTER 2023-10-17 18:26 | Outpatient (CLI) | payer MEDICAID, SELFPAY ==
[2023-10-17 18:39] LABS: Chol/HDL Ratio 7.4 (1-3.5); Cholesterol 251 mg/dl (140-200); HDL Cholesterol 34 mg/dl (40-60); Triglycerides 114 mg/dl (30-150); VLDL Cholesterol 23 mg/dL (0-40)
[2023-10-17 18:50] LABS: Direct LDL Cholesterol 164.57 mg/dL (100-129)
== END 2023-10-17 23:59 ==
LOC: LAB.DROPOF 18:27
PROVIDERS: PCP Internal Medicine; Visit Provider Internal Medicine
DX: E78.5 Hyperlipidemia, unspecified (principal)
CPT/HCPCS: 80061

== ENCOUNTER 2023-12-26 12:33 | Outpatient (CLI) | payer MEDICAID, SELFPAY ==
[2023-12-26] MEDS: ALBUTEROL 0.083% 2.5 MG/3 ML NEB IH (13:20)
--- NOTE | 2023-12-26 13:36 | CT_ITS ---
FINAL REPORT CLINICAL HISTORY: lung cancer screening current smoker 1 ppd x 50 years COMPARISON: 04/19/2022 FINDINGS: CTDI vol (mGy): 2.90 DLP: 114.[address] images of the chest were obtained using the low-dose protocol for screening. There is no evidence of mediastinal or hilar mass or adenopathy. No axillary mass or adenopathy is identified. On the lung window images, no pulmonary mass or suspicious nodule is identified. Mild emphysematous changes are noted. IMPRESSION: Lung RADS category 1 . Recommend 12 month followup low-dose CT for further evaluation. Reviewed, Interpreted and Dictated by True Smith MD Transcribed by Chikis Burr Authenticated and [facility]
== END 2023-12-26 23:59 | disposition home or self-care (01) ==
LOC: RT 12:34
PROVIDERS: PCP Internal Medicine; Visit Provider Internal Medicine Pulmonary Disease
DX: Z12.2 Encounter for screening for malignant neoplasm of respiratory organs (principal); R06.09 Other forms of dyspnea; F17.210 Nicotine dependence, cigarettes, uncomplicated
CPT/HCPCS: 71271; 94060; 94618; 94726; 94729

== ENCOUNTER 2024-01-29 11:38 | Emergency (ER) | payer MEDICAID, SELFPAY ==
[2024-01-29 11:39] VITALS: BP 108/57; PULSE 66; RESP 18; TEMP 36.6; O2SAT 97; BMI 23.9
[2024-01-29 11:45] VITALS: BP 108/57; PULSE 57; O2SAT 98
--- NOTE | 2024-01-29 11:50 | PC.NURSE ---
DR JAMES AT BEDSIDE
--- NOTE | 2024-01-29 12:24 | HMH.EDGENADL ---
Discharge Plan Disposition Patient Disposition: Home, Self-Care Chief Complaint: Abdominal Pain Prescriptions Prescriptions: No Action isosorbide mononitrate 30 mg tablet extended release 24 hr 30 mg PO DAILY Qty: 90 1RF cetirizine [Zyrtec] 10 mg tablet 10 mg PO DAILY Qty: 30 1RF albuterol sulfate 0.63 mg/3 mL solution for nebulization 0.63 mg inhalation Q6H Qty: 90 2RF arformoterol [Brovana] 15 mcg/2 mL solution for nebulization 2 ml inhalation BID Qty: 60 2RF Proventil HFA 90 mcg/actuation HFA aerosol inhaler 2 puff INHALATION TID PRN (Reason: shortness of breath or wheezing) Qty: 6.7 5RF (DME) nebulizers Mis See Rx Instructions .Route Qty: 1 0RF Rx Instructions: As directed esomeprazole magnesium 20 mg capsule,delayed release(DR/EC) See Rx Instructions .ROUTE .COMPLEX Qty: 90 0RF Dose Instruction: TAKE ONE CAPSULE BY MOUTH ONCE A DAY Rx Instructions: TAKE ONE CAPSULE BY MOUTH ONCE A DAY atorvastatin 40 mg tablet 40 mg PO HS Qty: 30 2RF aspirin 81 mg tablet,delayed release (DR/EC) See Rx Instructions .ROUTE .COMPLEX Qty: 180 3RF Dose Instruction: TAKE ONE TABLET BY MOUTH ONCE A DAY Rx Instructions: TAKE ONE TABLET BY MOUTH ONCE A DAY fluticasone propionate 50 mcg/actuation spray,suspension See Rx Instructions .ROUTE .COMPLEX Qty: 16 0RF Dose Instruction: USE 1 SPRAY IN EACH NOSTRIL ONCE A DAY Rx Instructions: USE 1 SPRAY IN EACH NOSTRIL ONCE A DAY gabapentin 100 mg capsule 100 mg PO TID Qty: 90 3RF acetaminophen-codeine 300-30 mg tablet 1 tab PO TID PRN (Reason: pain) Qty: 90 2RF Referrals Follow up/Referrals: Oleksandr Longoria DO [Primary Care Provider] - See instructions Activity Restrictions/Add. Instructions Additional Instructions/Restrictions: Take Tylenol 1000 mg every 6 hours (4 times daily) and ibuprofen 400 mg every 6 hours (4 times daily) as needed with food and water to prevent GI upset and kidney damage. Call your family doctor to establish care for this visit to the emergency department and schedule follow-up within 48 hours to ensure improvement. If you have any worsening of your condition or any other concerning signs or symptoms, return to the emergency department or your primary care doctor for further evaluation. Clinical Impressions Clinical Impression: Acute chest wall pain Instructions Patient Instructions: DI for Acute Abdominal Pain Discharge ED Provider: Francisco Poole General Adult HPI General Chief complaint: Abdominal Pain Stated complaint: pain in upper right side Time Seen by Provider: 01/29/24 11:41 Mode of Arrival: Ambulatory Source of Information: Patient Limitations: No Limitations Description of Symptoms (Recalled from ER Triage Doc. 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 Consequentially, this preceding description of symptoms, which may include the patient's categorized chief complaint in the EMR, do not reflect my personal clinical impression, and the ultimate description of history of present illness and patient stated complaints should be deferred to this section of the note. Unless stated otherwise or congruent with this section of the note, additional signs, symptoms, or incongruence should be interpreted as inaccurate with my clinical impression. Related Data Previous Rx's Medication Instructions Recorded albuterol sulfate 90 mcg/actuation 2 puff inhalation TID PRN 04/11/22 aerosol inhaler (Proventil HFA) shortness of breath or wheezing #6.7 grams isosorbide mononitrate 30 mg 30 mg PO DAILY #90 tabs 07/30/23 tablet,extended release 24 hr esomeprazole magnesium 20 mg See Rx Instructions .Route 08/16/23 capsule,delayed release .COMPLEX #90 caps cetirizine 10 mg tablet (Zyrtec) 10 mg PO DAILY #30 tabs 09/19/23 atorvastatin 40 mg tablet 40 mg PO HS #30 tabs 10/23/23 aspirin 81 mg tablet,delayed See Rx Instructions .Route 10/29/23 release .COMPLEX #180 tabs nebulizers #1 ea 12/20/23 fluticasone propionate 50 See Rx Instructions .Route 12/26/23 mcg/actuation nasal .COMPLEX #16 grams spray,suspension albuterol sulfate 0.63 mg/3 mL 0.63 mg (3 mL) inhalation Q6H #90 12/27/23 solution for nebulization mL arformoterol 15 mcg/2 mL solution 2 ml inhalation BID #60 mL 12/27/23 for nebulization (Brovana) gabapentin 100 mg capsule 100 mg PO TID #90 caps 01/16/24 acetaminophen 300 mg-codeine 30 mg 1 tab PO TID PRN pain #90 tabs 01/28/24 tablet Allergies Allergy/AdvReac Type Severity Reaction Status Date / Time Penicillins [PENICILLINS] Allergy Unknown Verified 01/29/24 12:15 [facility] Disclaimer: The information contained in this section may have been updated after the patient was seen, as this information can be updated by other users. Medical History Encounter for screening for malignant neoplasm of lung Smoking greater than 30 pack years Dyspnea on exertion Pulmonary emphysema Angina pectoris Abnormal computed tomography of lower extremity Worsening angina Claudication Tobacco user CAD in [place] artery Patient to return to cardiology. Claudication SOB (shortness of breath) on exertion Angina pectoris PVD (peripheral vascular disease) Hyperlipidemia Lipid panel done June 17 reveals a total cholesterol 243 LDL of 165 HDL of 36 and a triglyceride of 100. Patient is on very low-dose statin. Will increase him to 20 mg/day and do lipid panel in about 3 weeks. Surgical History No history of previous surgery Family History Other COPD (chronic obstructive pulmonary disease) Cancer Diabetes Heart attack Hypertension Social History Smoking Status: Current every day smoker tobacco type: cigarettes packs per day: 1 second hand exposure: Yes alcohol intake: never substance use type: denies use current occupational status: unemployed Travel in the last 8 weeks: None household members: significant other housing: house caffeine: Yes ROS Obtained: Yes All systems reviewed & no additional complaints except as documented Physical Exam General General appearance: alert and in no apparent distress Head Head exam: atraumatic and normocephalic Eye Eye exam: Present normal appearance, PERRL and EOMI ENT ENT exam: Present mucous membranes moist Neck Neck exam: Present normal inspection, full ROM and trachea midline Respiratory Respiratory exam: Absent respiratory distress, wheezes, stridor, accessory muscle use or prolonged expiratory phase Cardiovascular Cardiovascular exam: Present normal rhythm Abdominal Exam Abdominal exam: Present soft; Absent distention, tenderness, guarding, rebound or rigidity Extremities Exam Extremities exam: Absent edema Neurological Exam Neurological exam: Present alert, oriented X3, CN II-XII intact and normal gait; Absent motor sensory deficit Skin Skin exam: Present warm and dry; Absent diaphoresis or erythema Medical Decision Making Medical Records Medical records reviewed: Yes I reviewed the patient's medical records. Andry Inquiry Pt receiving controlled substance: No Andry was queried for this patient: No Vital Signs: 01/29/24 11:39 01/29/24 11:45 01/29/24 12:30 Temperature 97.9 F Temperature Source Oral Pulse Rate 57 L 60 Pulse Rate [Left Radial] 66 Respiratory Rate 18 18 Blood Pressure 108/57 L 107/61 L Blood Pressure [Right Arm] 108/57 L Blood Pressure Mean 75 Blood Pressure Mean [Right Arm] 74 Blood Pressure Source [Right Arm] Automatic Cuff Blood Pressure Position [Right Arm] Sitting 02 Sat by Pulse Oximetry 97 98 97 Oxygen Delivery Method Room Air 01/29/24 13:00 Temperature Temperature Source Pulse Rate 56 L Pulse Rate [Left Radial] Respiratory Rate 18 Blood Pressure 115/60 Blood Pressure [Right Arm] Blood Pressure Mean 76 Blood Pressure Mean [Right Arm] Blood Pressure Source [Right Arm] Blood Pressure Position [Right Arm] 02 Sat by Pulse Oximetry 97 Oxygen Delivery Method Lab Data Lab Results 01/29/24 12:00: WBC 7.7, RBC 4.31 L, Hgb 14.0 L, Hct 43.4, MCV 100.8 H, MCH 32.5 H, MCHC 32.2, RDW 13.5, Plt Count 287, MPV 8.0, Neut % (Auto) 62.5, Lymph % (Auto) 27.0, [place] % (Auto) 7.5, Eos % (Auto) 2.2, Baso % (Auto) 0.8, Neut # (Auto) 4.8, Lymph # (Auto) 2.1, [place] # (Auto) 0.6, Eos # (Auto) 0.2, Baso # (Auto) 0.1, Sodium 138, Potassium 3.9, Chloride 105, Carbon Dioxide 25, Anion Gap 11.9, BUN 18, Creatinine 0.80, Estimated Creat Clear 74, Estimated GFR 98, Est GFR ( Amer) 118, Glucose 92, Calcium 9.3, Total Bilirubin 0.4, AST 29, ALT 23, Alkaline Phosphatase 80, Troponin I < 0.01, Total Protein 6.9, Albumin 4.1, Globulin 2.8, Albumin/Globulin Ratio 1.5, Lipase 36 01/29/24 12:20: VBG pH 7.36, VBG pCO2 44.5, VBG pO2 43.5 H, VBG HCO3 24.7, VBG Total CO2 26.1, VBG O2 Saturation 81.5 H, VBG Base Excess -0.7, VBG Lactic Acid 1.8 01/29/24 12:00 01/29/24 12:00 Orders (Tests/Meds): ED MEDICATIONS Discontinued Medications Generic Name Dose Route Start Last Admin Trade Name Freq PRN Reason Stop Dose Admin Ketorolac Tromethamine 15 mg 01/29/24 12:26 01/29/24 12:34 Ketorolac 30mg/Ml Vial IV 01/29/24 12:27 15 mg ONCE ONE Administration ORDERS Category Date Time Status CXR 2 view (NOT portable) [XR chest 2V] Stat Exams 01/29/24 13:22 Taken POCUS Point of Care (ER Only) Stat Exams 01/29/24 12:21 Ordered CBC w/Auto Diff [Complete Blood Count Auto Diff] Stat Lab 01/29/24 12:00 Completed CMP [Comprehensive Metabolic Panel] Stat Lab 01/29/24 12:00 Completed Lipase Stat Lab 01/29/24 12:00 Completed Trop I [Troponin I] Stat Lab 01/29/24 12:00 Completed Troponin I Q3H Lab 01/29/24 15:30 Ordered Troponin I Q3H Lab 01/29/24 18:30 Ordered VBG [Venous Blood Gas] Stat RT 01/29/24 12:20 Completed Medical Decision Narrative: 63-year-old male history of COPD smoking not on home oxygen and still smoking, CAD, hypertension, hyperlipidemia presenting with right lower chest wall pain. Patient states that he rolled his tractor about a week prior to this visit. Started having pains after twisting yesterday, 6/. Made better with applying pressure, made worse with twisting and changing position. No shortness of breath, nausea, vomiting, diaphoresis, worsening cough. Tylenol 3 did not seem to help. History was obtained via conversation with patient. On arrival, patient hemodynamically stable, alert, oriented x4, appropriate, GCS 15, moving all extremities spontaneously, pupils equal and reactive to light. Full physical exam performed and significant for no obvious chest tenderness on my evaluation, patient states pressure makes it better. Right upper quadrant exam negative. Abdomen is benign. Differential includes PUD, gastritis, enteritis, gastroenteritis, pancreatitis, SBO, colitis, diverticulitis, nephrolithiasis, UTI, cholecystitis, choledocholithiasis, appendicitis, torsion, hepatitis, aortic pathology, mesenteric ischemia, ACS, SD, among others. Patient was given Toradol IV for symptomatic management and correction of underlying abnormalities. Workup independently interpreted and significant for nonactionable CBC or chemistry. Chemistry negative. VBG also negative. Chest x-ray without acute cardiopulmonary space disease, no pneumonia, no obvious rib fracture.. See radiology read for full review of final results. Independent interpretation of EKG shows sinus bradycardia 57 beats a minute. SC 205, QRS 75, QTc 392, axis normal. Heart score 3. Bedside [id number] ultrasound with normal right upper quadrant findings. On reevaluation, patient feeling much better after Toradol, no complaints at this time. Given patient presentation, workup, history, this most likely represents myofascial strain of the chest after tractor rollover. Because patient at baseline without signs or symptoms of clinical decompensation, deemed appropriate for discharge. Results were relayed to patient who voiced understanding and were agreeable to outpatient management and follow up. I discussed my clinical impression with patient and answered all questions. At this time, the evidence for any other entities in the differential is insufficient to warrant any further testing or ED observation. This was explained as well. Advisory was given that persistent or worsening symptoms require further evaluation. I confirmed the understanding of this discussion. Business Process Consultant disclaimer Much of this encounter note is an electronic weigh tank operator spoken language to printed text. Electronic weigh tank operator of the spoken language may permit errors. Although I have reviewed the note, some errors may still exist. Procedures Limited Ultrasound Indication:: Limited RUQ ultrasound Indication: Right lower chest wall pain Identified structures: -Gallbladder -Gallbladder wall -Common bile duct -Liver Findings: Sonographic Mata sign: Absent Gallstones: Absent Sludge: Absent Pericholecystic fluid: Absent Maximal GB wall thickness (mm) (normal is </= 3mm): Normal Common bile duct width (mm) (normal is </= 6mm): Normal Gallbladder width (cm) (normal is < 4cm): Normal Gallbladder length (cm) (normal is < 10cm): Normal Impression: Normal right upper quadrant ultrasound Images were saved to permanent archive The study was technically adequate CPT 10281-42 This study was performed by me, and I personally interpreted all images/videos. Based on my clinical judgement, these images were adequate and did not necessitate further imaging. Critical Care Critical Care Time Critical Care Time: No
--- NOTE | 2024-01-29 12:25 | PC.NURSE ---
resp aware of vbg
[2024-01-29 12:28] LABS: Chloride 105 mmol/L (98-107); Potassium 3.9 mmoL/L (3.5-5.1); Sodium 138 mmol/L (136-145)
[2024-01-29 12:30] VITALS: BP 107/61; PULSE 60; RESP 18; O2SAT 97
[2024-01-29 12:30] LABS: Lactate Venous 1.8 mmol/L (0.4-2.0); VBG Base Excess -0.7 mmol/L (-2.4-2.3); VBG HCO3 24.7 mmol/L (23-30); VBG Oxygen Saturation 81.5 % (50-70); VBG PCO2 44.5 mmol/L (35-51); VBG PH 7.36 mmol/L (7.31-7.41); VBG PO2 43.5 mmol/L (28-40); VBG Total CO2 26.1 mmol/L (23-27)
[2024-01-29 12:31] LABS: Alanine Aminotransferase 23 U/L (12-78); Albumin Level 4.1 g/dl (3.5-5.0); Albumin/Globulin Ratio 1.5 (1.1-1.8); Alkaline Phosphatase 80 U/L (38-126); Anion Gap 11.9 mEq/L (5-15); Aspartate Amino Transferase 29 U/L (17-59); Basophils # 0.1 K/mm3 (0-0.2); Basophils % 0.8 % (0.1-2.0); Bilirubin,Total 0.4 mg/dl (0.2-1.3); Blood Urea Nitrogen 18 mg/dl (9-20); Calcium 9.3 mg/dl (8.4-10.2); Carbon Dioxide 25 mmol/L (22.0-30.0); Creatinine Clearance Estimated 74 mL/min (50-200); Eosinophils # 0.2 K/mm3 (0.0-0.4); Eosinophils % 2.2 % (0.1-12.0); Estimated Glomerular Filt Rate 98 ml/min (>60); GFR (African American) 118 ML/MIN (>60); Globulin 2.8 g/dL (1.3-3.2); Glucose 92 mg/dl (74-100); Hematocrit 43.4 % (42.0-52.0); Lipase 36 U/L (23-300); Lymphocytes # 2.1 K/mm3 (0.7-4.5); Mean Corpuscular HGB Conc 32.2 g/dL (31.8-35.4); Mean Corpuscular Hemoglobin 32.5 pg (27.0-31.2); Mean Corpuscular Volume 100.8 fl (80-94); Monocytes # 0.6 K/mm3 (0.1-1.0); Monocytes % 7.5 % (1.7-9.3); Neutrophils # 4.8 K/mm3 (1.8-7.8); Neutrophils % 62.5 % (37.0-80.0); Platelet Count 287 K/mm3 (142-424); Red Blood Count 4.31 M/mm3 (4.60-6.20); Red Cell Distribution Width 13.5 % (11.5-17.5); Total Protein,Serum 6.9 g/dl (6.3-8.2); White Blood Count 7.7 K/mm3 (4.8-10.8)
--- NOTE | 2024-01-29 12:33 | ECG_ITS ---
APPROVED REPORT Exam: Resting ECG HR:57 bpm ECG Measurements Heart Rate 57 AXES MN 205 P 83 QRSd 75 QRS 86 QT 399 T 69 QTc 392 Conclusion SINUS BRADYCARDIA BORDERLINE ECG Electronically signed by : KG LAGUNA, 01/29/2024 21:42:38
[2024-01-29] MEDS: KETOROLAC 30MG/ML VIAL 15 MG IV (12:34)
[2024-01-29 13:00] VITALS: BP 115/60; PULSE 56; RESP 18; O2SAT 97
--- NOTE | 2024-01-29 13:22 | XR_ITS ---
FINAL REPORT CLINICAL HISTORY: Right lower chest wall pain FINDINGS: Two views of the chest were obtained. The heart size and pulmonary vascularity are within normal limits. The mediastinum is normal. No acute pulmonary abnormality is identified. There is no pneumothorax. The bony thorax is intact. IMPRESSION: No active cardiopulmonary disease. Reviewed, Interpreted and Dictated by Seng Castillo III, MD Transcribed by Freda Salmeron Authenticated and [facility]
[2024-01-29 13:27] LABS: Troponin I < 0.01 ng/ml (0.00-0.034)
[2024-01-29 13:30] VITALS: BP 106/65; PULSE 60; O2SAT 99
--- NOTE | 2024-01-29 13:32 | PC.NURSE ---
PT TO XR
[2024-01-29 14:04] VITALS: BP 109/54; PULSE 52; RESP 15; TEMP 36.6
== END 2024-01-29 14:04 | disposition home or self-care (01) ==
PROVIDERS: Emergency Provider Emergency Medicine; PCP Internal Medicine
DX: R07.1 Chest pain on breathing (principal); R00.1 Bradycardia, unspecified; F17.210 Nicotine dependence, cigarettes, uncomplicated; J43.9 Emphysema, unspecified; I11.9 Hypertensive heart disease without heart failure; I25.119 Atherosclerotic heart disease of native coronary artery with unspecified angina pectoris; I73.9 Peripheral vascular disease, unspecified; E78.5 Hyperlipidemia, unspecified
CPT/HCPCS: 71046; 80053; 82803; 83690; 84484; 85025; 93005; 96374; 99285

== ENCOUNTER 2024-04-21 13:31 | Outpatient (CLI) | payer MEDICAID, SELFPAY ==
[2024-04-21 19:06] LABS: Basophils # 0.1 K/mm3 (0-0.2); Basophils % 0.9 % (0.1-2.0); Eosinophils # 0.2 K/mm3 (0.0-0.4); Eosinophils % 2.5 % (0.1-12.0); Hematocrit 45.8 % (42.0-52.0); Hemoglobin 14.5 g/dL (14.1-18.0); Lymphocytes # 2.3 K/mm3 (0.7-4.5); Lymphocytes % 35.4 % (10-50); Mean Corpuscular HGB Conc 31.7 g/dL (31.8-35.4); Mean Corpuscular Hemoglobin 32.2 pg (27.0-31.2); Mean Corpuscular Volume 101.6 fl (80-94); Mean Platelet Volume 8.9 fl (7.4-10.4); Monocytes # 0.5 K/mm3 (0.1-1.0); Monocytes % 7.9 % (1.7-9.3); Neutrophils # 3.5 K/mm3 (1.8-7.8); Neutrophils % 53.4 % (37.0-80.0); Platelet Count 335 K/mm3 (142-424); Red Cell Distribution Width 13.4 % (11.5-17.5); White Blood Count 6.6 K/mm3 (4.8-10.8)
[2024-04-21 19:17] LABS: Microalbumin/Creatinine Ratio 6.6
[2024-04-21 19:19] LABS: Creatinine,Urine Random 201 mg/dL (Not Estab.)
[2024-04-21 19:22] LABS: Hemoglobin A1C 5.8 % (4.0-6.0)
[2024-04-21 21:59] LABS: Alanine Aminotransferase 25 U/L (12-78); Albumin Level 4.2 g/dl (3.5-5.0); Albumin/Globulin Ratio 1.4 (1.1-1.8); Alkaline Phosphatase 110 U/L (38-126); Anion Gap 8.4 mEq/L (5-15); Aspartate Amino Transferase 27 U/L (17-59); Bilirubin,Total 0.3 mg/dl (0.2-1.3); Blood Urea Nitrogen 19 mg/dl (9-20); Calcium 9.2 mg/dl (8.4-10.2); Carbon Dioxide 26 mmol/L (22.0-30.0); Chloride 108 mmol/L (98-107); Chol/HDL Ratio 6.7 (1-3.5); Cholesterol 266 mg/dl (140-200); Estimated Glomerular Filt Rate 114 ml/min (>60); GFR (African American) 137 ML/MIN (>60); Glucose 102 mg/dl (74-100); HDL Cholesterol 40 mg/dl (40-60); Potassium 4.4 mmoL/L (3.5-5.1); Sodium 138 mmol/L (136-145); Total Protein,Serum 7.2 g/dl (6.3-8.2); Triglycerides 99 mg/dl (30-150); VLDL Cholesterol 20 mg/dL (0-40)
[2024-04-21 22:10] LABS: Direct LDL Cholesterol 188.39 mg/dL (100-129)
[2024-04-21 22:31] LABS: Prostate Specific Ag Screen 3.4 ng/ml (0.0-4.0); Thyroid Stimulating Hormone 1.61 uIU/mL (0.465-4.68)
[2024-04-22 12:50] LABS: HIV (1&2) Antibody Rapid NONREACTIVE (NONREACTIVE)
[2024-04-23 09:39] LABS: HBsAg Screen Negative (Negative); HCV Ab Non Reactive (Non Reactive); Hep A Ab, IGM Negative (Negative); Hep B Core Ab, IgM Negative (Negative)
== END 2024-04-21 23:59 | disposition home or self-care (01) ==
LOC: LAB.DROPOF 04-22 09:43
PROVIDERS: PCP Internal Medicine; Visit Provider Internal Medicine
DX: E78.5 Hyperlipidemia, unspecified (principal); R07.89 Other chest pain; J43.9 Emphysema, unspecified; I73.9 Peripheral vascular disease, unspecified; I25.10 Atherosclerotic heart disease of native coronary artery without angina pectoris; R73.9 Hyperglycemia, unspecified; E03.9 Hypothyroidism, unspecified; Z12.5 Encounter for screening for malignant neoplasm of prostate; Z91.89 Other specified personal risk factors, not elsewhere classified; Z11.4 Encounter for screening for human immunodeficiency virus [HIV]; Z11.59 Encounter for screening for other viral diseases
CPT/HCPCS: 80050; 80053; 80061; 80074; 82043; 82570; 83036; 84443; 85025; G0103

== ENCOUNTER 2024-07-29 13:35 | Outpatient (CLI) | payer MEDICAID, SELFPAY ==
[2024-07-29 18:33] LABS: Chol/HDL Ratio 5.6 (1-3.5); Cholesterol 239 mg/dl (140-200); HDL Cholesterol 43 mg/dl (40-60); Triglycerides 91 mg/dl (30-150); VLDL Cholesterol 18 mg/dL (0-40)
[2024-07-29 18:44] LABS: Direct LDL Cholesterol 182.44 mg/dL (100-129)
== END 2024-07-29 23:59 | disposition home or self-care (01) ==
LOC: LAB.DROPOF 07-30 10:12
PROVIDERS: PCP Internal Medicine; Visit Provider Internal Medicine
DX: E78.2 Mixed hyperlipidemia (principal)
CPT/HCPCS: 80061

== ENCOUNTER 2024-10-27 10:31 | Outpatient (CLI) | payer MEDICAID, SELFPAY ==
[2024-10-27 20:15] LABS: Basophils # 0.1 K/mm3 (0-0.2); Basophils % 0.7 % (0.1-2.0); Eosinophils # 0.1 K/mm3 (0.0-0.4); Eosinophils % 1.3 % (0.1-12.0); Hematocrit 41.1 % (42.0-52.0); Hemoglobin 13.3 g/dL (14.1-18.0); Lymphocytes # 2.2 K/mm3 (0.7-4.5); Lymphocytes % 29.1 % (10-50); Mean Corpuscular HGB Conc 32.4 g/dL (31.8-35.4); Mean Corpuscular Hemoglobin 30.6 pg (27.0-31.2); Mean Corpuscular Volume 94.5 fl (80-94); Mean Platelet Volume 9.9 fl (7.4-10.4); Monocytes # 0.8 K/mm3 (0.1-1.0); Neutrophils # 4.4 K/mm3 (1.8-7.8); Neutrophils % 58.4 % (37.0-80.0); Platelet Count 279 K/mm3 (142-424); Red Blood Count 4.35 M/mm3 (4.60-6.20); Red Cell Distribution Width 13.3 % (11.5-17.5); White Blood Count 7.6 K/mm3 (4.8-10.8)
[2024-10-27 21:11] LABS: Albumin Level 4.2 g/dl (3.5-5.0); Chloride 105 mmol/L (98-107); Potassium 4.4 mmoL/L (3.5-5.1); Sodium 139 mmol/L (136-145)
[2024-10-27 21:13] LABS: Alanine Aminotransferase 24 U/L (12-78); Aspartate Amino Transferase 27 U/L (17-59); Blood Urea Nitrogen 15 mg/dl (9-20); Estimated Glomerular Filt Rate 114 ml/min (>60); GFR (African American) 137 ML/MIN (>60)
[2024-10-27 21:14] LABS: Albumin/Globulin Ratio 1.9 (1.1-1.8); Alkaline Phosphatase 88 U/L (38-126); Anion Gap 13.4 mEq/L (5-15); Bilirubin,Total 0.4 mg/dl (0.2-1.3); Calcium 9.1 mg/dl (8.4-10.2); Carbon Dioxide 25 mmol/L (22.0-30.0); Chol/HDL Ratio 3.6 (1-3.5); Cholesterol 145 mg/dl (140-200); Globulin 2.2 g/dL (1.3-3.2); Glucose 94 mg/dl (74-100); HDL Cholesterol 40 mg/dl (40-60); Total Protein,Serum 6.4 g/dl (6.3-8.2); Triglycerides 63 mg/dl (30-150); VLDL Cholesterol 13 mg/dL (0-40)
[2024-10-27 21:25] LABS: Direct LDL Cholesterol 85.04 mg/dL (100-129)
== END 2024-10-27 23:59 | disposition home or self-care (01) ==
LOC: LAB.DROPOF 10-28 10:31
PROVIDERS: PCP Internal Medicine; Visit Provider Internal Medicine
DX: E78.2 Mixed hyperlipidemia (principal); R06.09 Other forms of dyspnea; F17.210 Nicotine dependence, cigarettes, uncomplicated
CPT/HCPCS: 80053; 80061; 85025

== ENCOUNTER 2025-03-11 14:01 | Outpatient (CLI) | payer MEDICAID, SELFPAY ==
--- OUTSIDE RECORDS SUMMARY | 2025-03-11 14:17 | XMS_ITS | Clinical Summary ---
Author Organization [facility] Address [address] [place] [address] Phone Care Team Providers Care Client Advocate Name Role Phone Nonstaff, Referring Primary Care Provider Unavai lable Allergies Active Allergy Reactions Criticality Noted Date Comments Penicillins 07/17/2011 Medications citalopram (CELEXA) 20 mg Take 20 mg by mouth daily. Active Medical History Medical History Date Comments Anxiety Social History Tobacco Use Types Packs/Day Years Used Date Smoking Tobacco: Every Day Cigarettes Alcohol Use Standard Drinks/Week Comments No 0 (1 standard drink = 0.6 oz pur e alcohol) Sex and Gender Information Value Date Recorded Sex Assigned at Not on file Legal Sex Male 3:30 AM EDT Gender Identity Not on file Sexual Orientation Not on file Obstetrics History Last Filed Vital Signs Vital Sign Reading Time Taken Comments Blood Pressure 137/61 10/31/2012 1:41 PM EST Pulse 69 10/31/2012 1:41 PM EST Temperature 36.2 C (97.2 F) 10/31/2012 1:41 PM EST Respiratory Rate 20 10/31/2012 1:41 PM EST Oxygen Saturation 98% 10/31/2012 1:41 PM EST Inhaled Oxygen Concentration - - Weight 61.7 kg (136 lb) 10/31/2012 1:41 PM EST Height 170.2 cm (5' 7 ) 07/17/2011 10:42 PM EST Body Mass Index 21.3 07/17/2011 10:42 PM EST Plan of Treatment Health Maintenance Due Date Last Done Comments Annual Wellness Exam 1963 Hepatitis C Screening 1978 DTaP/TDaP/Td (1 - Tdap) 1979 Cologuard 2005 Colon Cancer Screening 2005 Colonoscopy 2005 FIT 2005 Sigmoidoscopy 2005 Virtual Colonography 2005 Pneumococcal Vaccine 50+ (1 of 1 - PCV) 2010 Zoster (1 of 2) 2010 COVID-19 Vaccine ( - 2023-2 5 season) 2024 Influenza Vaccine (#1) 2025 Hepatitis B Vaccine Aged Out No longe r eligible based on patient's age to complete this topic Meningococcal B Vaccine Aged Out No l onger eligible based on patient's age to complete this topic Care Teams Client Advocate Relationship Specialty Start Date End Date Nonstaff, Referring PCP - General 07/17/11
--- NOTE | 2025-03-11 14:30 | CT_ITS ---
FINAL REPORT TECHNIQUE: Axial CT without IV contrast administration using low dose protocol. Coronal and sagittal multiplanar reconstructed images were also obtained. This study was performed with techniques to keep radiation doses as low as reasonably achievable, (ALARA). Individualized dose reduction techniques using automated exposure control or adjustment of mA and/or kV according to the patient's size were employed. CLINICAL HISTORY: Lung cancer screening Current smoker of 1 ppd for 58 years also exposed to second-hand smoke, 58 pack years history HX of COPD & emphysema Family hx of lung cancer COMPARISON: 12/26/2023 FINDINGS: CT CHEST LOW DOSE SCREENING Screening exam for lung cancer. Current smoker, 1 pack/day for 58 years, 58 pack years history. DOSE: CTDI vol: 2.90 mGy, DLP: 108.90 mGy*cm There is a faint 2 mm nodule in the left upper lobe seen on image 27 of series 3. This is best seen on the MIPS imaging on image #21. This lesion is stable compared to prior exam. There are no new pulmonary nodules. There is no adenopathy or effusion. IMPRESSION: No evidence of primary lung neoplasm. LUNG RADS CATEGORY 2 RECOMMENDATION: 12 month LDCT follow up Reviewed, Interpreted and Dictated by True Smith MD Transcribed by Alma Rueda Authenticated and [facility]
== END 2025-03-11 23:59 | disposition home or self-care (01) ==
LOC: RAD 14:02
PROVIDERS: PCP Family Medicine; Visit Provider Family Medicine
DX: J43.9 Emphysema, unspecified (principal); F17.219 Nicotine dependence, cigarettes, with unspecified nicotine-induced disorders; Z12.2 Encounter for screening for malignant neoplasm of respiratory organs
CPT/HCPCS: 71271

== ENCOUNTER 2025-03-29 14:25 | Outpatient (POV) | payer MEDICARE, MEDICAID, SELFPAY ==
--- OUTSIDE RECORDS SUMMARY | 2025-03-29 14:33 | XMS_ITS | Clinical Summary ---
Author Organization [facility] Address [address] [place] [address] Phone Care Team Providers Care Aircraft Design Engineer Name Role Phone Nonstaff, Referring Primary Care [...] age to complete this topic Care Teams Aircraft Design Engineer Relationship Specialty Start Date End Date Nonstaff, Referring PCP - General 07/17/11
--- NOTE | 2025-03-29 14:55 | A.OFFVIS_ITS ---
HPI Data of Consult Patient: new to practice Consult date: 03/29/25 Requesting Physician: Nicki Blank APRN Primary Care Provider: Referral Provider, Reason for consult: Low back pain, left hip pain, left thigh pain History of present illness: Mr. Nicolas is a 65 year old male who presents today as a new patient. Patient is being referred from [facility] office. He rates his pain today as 6 out of 10. Patient does state that he did see our office about 4 to 5 years ago and had 1 injection that worked wonderful and he ended up not really needing additional injection therapy. Patient does state that he still had the long- term chronic low back pain however it has been more manageable up until the last 6 months or more. Patient does describe it as a fairly constant achy sensation with burning into the upper thigh. He denies any new falls or injuries. Patient does state that he has tried oral medications including Tylenol 3, heat and ice and topicals like Biofreeze with some changes. Patient does state it is worse with certain activities such as going up and down stairs or long car rides. He does state that it does help if he can stop and rest and then go again. He does state the pain is interfering with his ability perform activities of daily living such as cooking and cleaning. Patient is interested in additional injection therapy as the last one did significantly improve his overall function. Patient has continued at home stretching exercise for longer than 12 weeks with no additional changes. Patient denies any previous surgery history. His Andry has been reviewed and is appropriate. Pain at rest (0-10 scale): 6 Has patient had previous pain injection?: No Conservative treatment options previously tried: Home exercise plan (Longer than 12 weeks) cc:: CC: Nicki Blank APRN [facility] Disclaimer: The information contained in this section may have been updated after the patient was seen, as this information can be updated by other users. Medical History (Updated 03/29/25 @ 15:00 by Nicki Blank APRN) Open fracture of finger of left hand Laceration of left index finger Acute bronchitis Chest pain Worsening angina Acute upper respiratory infection Acute chest wall pain Encounter for screening for malignant neoplasm of lung Smoking greater than 30 pack years Dyspnea on exertion Pulmonary emphysema Angina pectoris Abnormal computed tomography of lower extremity Claudication Tobacco user CAD in [place] artery Claudication SOB (shortness of breath) on exertion Angina pectoris PVD (peripheral vascular disease) Hyperlipidemia Surgical History No history of previous surgery Family History Other COPD (chronic obstructive pulmonary disease) Cancer Diabetes Heart attack Hypertension Social History Smoking Status: Current every day smoker tobacco type: cigarettes packs per day: 1 second hand exposure: Yes alcohol intake: never substance use type: denies use current occupational status: unemployed Travel in the last 8 weeks?: None household members: significant other housing: house caffeine: Yes Review of Systems Review of Systems Review of systems:: pertinent systems reviewed and negative unless documented below Review of systems (narrative): Review of Systems: General: No recent weight changes, no fever, no sleep disturbances Respiratory: No cough, no shortness of air, no recurring pulmonary infections Cardiovascular/peripheral vascular: No chest pain, no palpitations, no edema, no shortness of breath Gastrointestinal: No new onset incontinence, normal bowel movements reported Genitourinary: No new onset incontinence Musculoskeletal: Low back pain, left hip pain, left thigh pain Psychiatric: [Normal mood/affect] Neurological: [Denies weakness in extremities], [denies balance issues] Meds Home Medications and Allergies Home Medications ?Medication ?Instructions ?Recorded ?Confirmed ?Type cetirizine 10 mg tablet (Zyrtec) 10 mg PO DAILY #30 ta bs 09/19/23 03/04/25 Rx nebulizers #1 ea 12/20/23 10/27/24 Rx fluticasone propionate 50 See Rx Instructions .Route 0 12/26/23 03/04/25 Rx mcg/actuation nasal .COMPLEX #16 grams spray,suspension arformoterol 15 mcg/2 mL solution 2 ml inhalation BID #60 mL 12/27/23 03/04/25 Rx for nebulization (Brovana) aspirin 81 mg tablet,delayed See Rx Instructions .Rout e 11/11/24 03/04/25 Rx release .COMPLEX #90 tabs albuterol sulfate 0.63 mg/3 mL See Rx Instructions .Ro walker river 01/27/25 03/04/25 Rx solution for nebulization .COMPLEX #75 mL ondansetron 4 mg disintegrating 4 mg PO Q8H PRN nausea and 02/04/25 03/04/25 Rx tablet vomiting #30 tabs acetaminophen 300 mg-codeine 30 mg 1 tab PO TID PRN pa in 30 days #90 03/04/25 03/04/25 Rx tablet tabs albuterol sulfate 90 mcg/actuation See Rx Instructions .Route 03/04/25 03/04/25 Rx aerosol inhaler .COMPLEX #18 grams isosorbide mononitrate 30 mg See Rx Instructions .Rout e 03/04/25 03/04/25 Rx tablet,extended release 24 hr .COMPLEX #90 tabs rosuvastatin 10 mg tablet 10 mg PO HS #90 tabs 5 03/04/25 Rx esomeprazole magnesium 20 mg See Rx Instructions .Rout e 03/12/25 Rx capsule,delayed release .COMPLEX #90 caps New Prescriptions to Start Prescriptions: Allergies Allergy/AdvReac Type Severity Reaction Status Date / Time Penicillins (PENICILLINS) Allergy Unknown Verified 03/04/25 14:16 Objective Narrative: Physical Exam: General: Alert and oriented x3, no acute distress, pleasant and cooperative Lungs: Respirations even and unlabored, symmetrical chest expansion Eyes: PERRL Musculoskeletal: Flexion and extension of lumbar [spine] somewhat guarded secondary to pain, [antalgic gait noted] point tenderness along left SI with positive left Abel's, Jimy's, Gaenslen's, compression and distraction exam Neurological: Speech clear, no gross sensory deficit Additional findings Additional findings: FINDINGS: Vertebral bodies are intact.. No compression fractures Note multilevel minimal Schmorl's nodes at superior and inferior endplate-seen at multiple levels throughout lumbar and lower thoracic spine.Conus ends appropriately at L1 L5/S1 disc space well maintained well-hydrated disc diffuse disc bulge most evident central and slightly to the right. Facet hypertrophy. Features yield mild recess and foraminal encroachment on right more so than L4/5 and degenerative disc space narrowing. Degenerative grade 1 anterolisthesis of L4 on L5. 4.2 mm anterior offset of L5 on S1 along with the prominent diffuse disc bulge plus exuberant facet hypertrophy and ligament flavum hypertrophy combine to yield moderately pronounced central canal stenosis at this level. Axial views and 3-D MR myelogram images nicely demonstrate the moderate facet canal stenosis. Also generous recess & foraminal encroachment bilaterally . L3/4. Mild foraminal disc bulge. Trace facet arthropathy/hypertrophy. Mild foraminal encroachment due to combination of these features. L1/L2. Disc intact. Facet hypertrophy. T12/L1 disc intact.. No significant appearing findings. Only Mild facet prominence to the left 3-D MR myelogram image set nicely demonstrates the moderately pronounced since canal stenosis at L4/5.- Marked tapering and narrowing the spinal canal. Assessment and Plan *Assessment and plan (1) Sacroiliitis: Status: Acute Category: Medical Code(s): M46.1 - Sacroiliitis, not elsewhere classified (2) DDD (degenerative disc disease), lumbar: Status: Chronic Qualifiers: Disc-related pain type: lower extremity pain only Qualified Code(s): M51.361 - Other intervertebral disc degeneration, lumbar region with lower extremity pain only Category: Medical Code(s): M51.369 - Other intervertebral disc degeneration, lumbar region without mention of lumbar back pain or lower extremity pain Plan Patient is experiencing worsening pain along the low back and left hip. They did have limited range of motion of the lumbar spine along with point tenderness along left SI joint and a positive left Abel's, Jimy's, Gaenslen's, compression and distraction exam. I did discuss with the patient that I do believe they would benefit from left SI injections. Risk and benefits were discussed with the patient and they would like to proceed forward with this option. Patient has tried and failed conservative therapy. Patient has been actively doing conservative treatment including oral medication, heat and ice, topicals, at home exercising and stretching for longer than 12 weeks. Patient is having to adjust their activity based off the increased pain resulting in activity modification. I do believe the patient would benefit from SI injection. If the patient does get significant relief following these injections we will see in the future if they would benefit from a second set with the possibility of SI fusion at a later date. This will be a diagnostic injection with less than 1 mL solution to be injected. Patient will be scheduled for left SI injection under fluoroscopy. I will also order the p atient a compounded cream. Patient has been instructed to contact the clinic with any concerns before the next appointment. Dr. Hays has reviewed this note and agrees with this plan of care. This note was dictated using voice recognition software and make contain errors or omissions. All injections are used with Lidocaine or Bupivacaine and dexamethasone unless diagnostic in which no steroids were injected.
[2025-03-29 15:08] VITALS: BP 101/57; PULSE 63; RESP 18; O2SAT 96; BMI 23.6
== END 2025-03-29 23:59 | disposition home or self-care (01) ==
LOC: SC.PAIN 14:27
PROVIDERS: Visit Provider Nurse Practitioner Family
DX: M46.1 Sacroiliitis, not elsewhere classified (principal); M51.16 Intervertebral disc disorders with radiculopathy, lumbar region; Z79.1 Long term (current) use of non-steroidal anti-inflammatories (NSAID)
CPT/HCPCS: 99202; G0463

== ENCOUNTER 2025-07-06 10:13 | Day surgery (SDC) | payer MEDICARE, MEDICAID, SELFPAY ==
[2025-07-06 10:18] VITALS: BP 142/59; PULSE 68; RESP 18; O2SAT 96; BMI 23.9
[2025-07-06 10:26] VITALS: BP 142/59; PULSE 68; RESP 18; O2SAT 96
[2025-07-06] MEDS: LIDOCAINE 1% 5ML PF VIAL 5 ML (10:26)
[2025-07-06] MEDS: BUPIVACAINE 0.25% 10ML INJ 25 MG IJ (10:26)
--- NOTE | 2025-07-06 10:29 | EXP.PAIN.PRO ---
Procedure Date: 07/06/25 Time: 10:10 Anesthesiologist:: Chance Rhodes CRNA Complications:: None Pre-procedure Diagnosis:: Left sacroiliitis Post-procedure Diagnosis:: Same Indications for Procedure:: Patient is a very pleasant 65-year-old male who comes to clinic today for a left sacroiliac joint injection of local anesthetic for diagnostic purpose. Patient describes low lumbar back pain off the midline to the left. Left posterior hip pain. Difficulty transitioning from sitting to standing. Difficulty with ambulation due to the left posterior hip pain. He rates his pain 7/10. Procedure Details:: Procedure: Left sacroiliac injection under fluoroscopy Informed consent was obtained and the risk and benefits of the procedure were explained to the patient.~ The patient was taken to the procedure room and noninvasive monitors were placed including noninvasive blood pressure cuff and pulse oximeter.~ The patient was placed prone on the procedure table.~ The~ left hip was cleansed using Betadine as a cleansing solution.~ C-arm fluorosocpy was used to view the left SI joint.~ The skin and subcutaneous tissues were anesthetized using Lidocaine 1.5% and a 25-gauge needle.~ After this, a 22-gauge spinal needle was inserted under fluoroscopic guidance into the inferior aspect of the left SI joint.~ Omnipaque dye was injected and a good spread was seen throughout the joint.~ After this, approximately 5 mL of bupivacaine 0.25% incrementally injected into the sacroiliac joint.~ The patient tolerated the procedure well with no complications.~ The patient was observed in the Pain Clinic for a period of 30-45 minutes, then discharged home neurologically intact.~ Plan and Disposition:: Patient was discharged without incident.
[2025-07-06 10:30] VITALS: BP 123/65; BP 142/59; PULSE 60; PULSE 68; RESP 16; RESP 18; O2SAT 96; O2SAT 97
== END 2025-07-06 10:30 | disposition home or self-care (01) ==
PROVIDERS: PCP Family Medicine; Visit Provider Nurse Anesthetist, Certified Registered
DX: M46.1 Sacroiliitis, not elsewhere classified (principal); I25.118 Atherosclerotic heart disease of native coronary artery with other forms of angina pectoris; J43.9 Emphysema, unspecified; E78.5 Hyperlipidemia, unspecified; I73.9 Peripheral vascular disease, unspecified; F17.210 Nicotine dependence, cigarettes, uncomplicated; Z88.0 Allergy status to penicillin; Z79.82 Long term (current) use of aspirin; Z79.891 Long term (current) use of opiate analgesic; Z79.899 Other long term (current) drug therapy
CPT/HCPCS: G0260; J0665; J2003

== ENCOUNTER 2025-08-12 16:04 | Outpatient (CLI) | payer MEDICARE, MEDICAID, SELFPAY ==
--- NOTE | 2025-08-12 16:06 | XR_ITS ---
PROCEDURE INFORMATION: Exam: XR Chest Exam date and time: 08/12/2025 4:07 PM Age: 65 years old Clinical indication: Cough TECHNIQUE: Imaging protocol: Radiologic exam of the chest. Views: 2 views. COMPARISON: CT LUNG SCREENING 03/11/2025 2:18 PM FINDINGS: Lungs: Unremarkable. No consolidation. Pleural spaces: Unremarkable. No pleural effusion. No pneumothorax. Heart/Mediastinum: Unremarkable. No cardiomegaly. Bones/joints: Unremarkable. IMPRESSION: No acute findings.
--- OUTSIDE RECORDS SUMMARY | 2025-08-12 16:06 | XMS_ITS | Clinical Summary ---
Author Organization [facility] Address [address] [place] [address] Phone Care Team Providers Care Geographic Information System Surveyor Name Role Phone Nonstaff, Referring Primary Care [...] on file Sexual Orientation Not on file Last Filed Vital Signs Vital Sign Reading [...] of 2) 2010 COVID-19 Vaccine ( - 2024-2 6 season) 2025 Influenza Vaccine (#1) 2025 Hepatitis B Vaccine Aged Out No longe r eligible based on patient's age to complete this topic Meningococcal B Vaccine Aged Out No l onger eligible based on patient's age to complete this topic Care Teams Geographic Information System Surveyor Relationship Specialty Start Date End Date Nonstaff, Referring PCP - General 07/17/11
[2025-08-12 20:56] LABS: Hematocrit 43.5 % (42.0-52.0); Hemoglobin 14.1 g/dL (14.1-18.0); Immature Granulocytes % 0.4 %; Mean Corpuscular HGB Conc 32.4 g/dL (31.8-35.4); Mean Corpuscular Hemoglobin 30.3 pg (27.0-31.2); Mean Corpuscular Volume 93.5 fl (80-94); Nucleated Red Blood Cells % 0 %; Platelet Count 216 K/mm3 (142-424); Red Blood Count 4.65 M/mm3 (4.60-6.20); Red Cell Distribution Width-SD 43.2 fL; White Blood Count 7.0 K/mm3 (4.8-10.8)
[2025-08-12 21:21] LABS: Alanine Aminotransferase 22 U/L (12-78); Albumin Level 4.5 g/dl (3.5-5.0); Albumin/Globulin Ratio 1.6 (1.1-1.8); Alkaline Phosphatase 110 U/L (38-126); Anion Gap 12.4 mEq/L (5-15); Aspartate Amino Transferase 28 U/L (17-59); Bilirubin,Total 0.6 mg/dl (0.2-1.3); Blood Urea Nitrogen 26 mg/dl (9-20); Calcium 9.3 mg/dl (8.4-10.2); Carbon Dioxide 25 mmol/L (22.0-30.0); Chloride 105 mmol/L (98-107); Creatinine,Serum 0.70 mg/dl (0.66-1.25); Estimated Glomerular Filt Rate 113 ml/min (>60); GFR (African American) 137 ML/MIN (>60); Globulin 2.8 g/dL (1.3-3.2); Glucose 96 mg/dl (74-100); Potassium 4.4 mmoL/L (3.5-5.1); Sodium 138 mmol/L (136-145); Total Protein,Serum 7.3 g/dl (6.3-8.2)
[2025-08-12 21:48] LABS: Thyroid Stimulating Hormone 0.92 uIU/mL (0.465-4.68)
== END 2025-08-12 23:59 | disposition home or self-care (01) ==
LOC: RAD 16:04
PROVIDERS: PCP Student in an Organized Health Care Education/Training Program; Visit Provider Family Medicine
DX: R05.9 Cough, unspecified (principal); E78.5 Hyperlipidemia, unspecified; E78.2 Mixed hyperlipidemia; Z12.5 Encounter for screening for malignant neoplasm of prostate
CPT/HCPCS: 71046; 80053; 84443; 85025; G0103